=== PATIENT | male | born 1975 | race Caucasian/White ===

== ENCOUNTER → 2016-11-05 | Outpatient (REF) | payer MEDICARE ==
[~2016-11-05] MED LIST: /HYDR10T PO; AFRI0.052; BACT2CRE TOP; BACT2OIN EX; BECLOMETHASONE TOP; BENA25CA PO; BENA25TA4 PO; BETA0.1O TOP; BETAMETHASONE VALERATE TOP; DOXY75CA3 PO; FURO40TA2 PO; FURO80TA2 PO; GABA300C2 PO; HUMA75IN SC; HUMA75IN2 SC; MUPI2OI TOP; NASA55AE; OMEP20CA3 PO; PERC7.5T12 PO; REGL10TA6 PO; SPIR50TA2 PO; TESS100C PO; TETR250C3 PO; TYLE325T5 PO; ZOFR8TAB PO; [UNRECOGNIZED DRUG - CODE] IPL; [UNRECOGNIZED DRUG - CODE] PO
[2016-11-05 16:26] LABS: ANION GAP 12 MEQ/L (8-16); BLOOD UREA NITROGEN 22 MG/DL (7-18); CALCIUM LEVEL 9.5 MG/DL (8.5-10.1); CARBON DIOXIDE LEVEL 26 MEQ/L (21-32); CHLORIDE LEVEL 102 MEQ/L (98-107); CREATININE FOR GFR 1.21 MG/DL (0.70-1.30); GLOMERULAR FILTRATION RATE > 60.0 (>60); GLUCOSE, FASTING 159 MG/DL (70-105); POTASSIUM SERUM 4.8 MEQ/L (3.5-5.1); SODIUM LEVEL 140 MEQ/L (136-145)
== END ==
LOC: M SFHCPLAZ 12:00
PROVIDERS: ATTEND Family Medicine
DX: R79.89 Other specified abnormal findings of blood chemistry (principal)

== ENCOUNTER → 2016-12-31 | Outpatient (REF) | payer MEDICARE ==
[2016-12-31 17:11] LABS: CALCIUM LEVEL 8.9 MG/DL (8.5-10.1); CREATININE FOR GFR 1.82 MG/DL (0.70-1.30); GLOMERULAR FILTRATION RATE 44.1 (>60); POTASSIUM SERUM 4.2 MEQ/L (3.5-5.1)
== END ==
LOC: M SFHCPLAZ 13:38
PROVIDERS: ATTEND Family Medicine
DX: R21 Rash and other nonspecific skin eruption (principal); R79.89 Other specified abnormal findings of blood chemistry

== ENCOUNTER → 2017-03-19 | Outpatient (REF) | payer MEDICARE ==
[2017-03-19 15:56] LABS: CALCIUM LEVEL 9.4 MG/DL (8.5-10.1); CREATININE FOR GFR 1.45 MG/DL (0.70-1.30); GLOMERULAR FILTRATION RATE 57.1 (>60); POTASSIUM SERUM 4.1 MEQ/L (3.5-5.1)
== END ==
LOC: M SFHCPLAZ 13:02
PROVIDERS: ATTEND Family Medicine
DX: E11.40 Type 2 diabetes mellitus with diabetic neuropathy, unspecified (principal); N18.3 Chronic kidney disease, stage 3 (moderate)

== ENCOUNTER → 2017-04-17 | Outpatient (REF) | payer MEDICARE, MEDICAID ==
[2017-04-17 12:39] LABS: ANION GAP 9 MEQ/L (8-16); BLOOD UREA NITROGEN 24 MG/DL (7-18); CALCIUM LEVEL 8.8 MG/DL (8.5-10.1); CARBON DIOXIDE LEVEL 28 MEQ/L (21-32); CHLORIDE LEVEL 99 MEQ/L (98-107); CREATININE FOR GFR 1.27 MG/DL (0.70-1.30); FREE T4 1.16 NG/DL (0.76-1.46); GLOMERULAR FILTRATION RATE > 60.0 (>60); GLUCOSE, FASTING 206 MG/DL (70-105); POTASSIUM SERUM 4.4 MEQ/L (3.5-5.1); SODIUM LEVEL 136 MEQ/L (136-145)
== END ==
LOC: M SFHCPLAZ 09:32
PROVIDERS: ATTEND Family Medicine
DX: R53.82 Chronic fatigue, unspecified (principal); R60.9 Edema, unspecified

== ENCOUNTER → 2017-05-27 | Outpatient (REF) | payer MEDICARE ==
[2017-05-27 19:09] LABS: MEAN CORPUSCULAR HEMOGLOBIN 25.2 pg (27.0-33.0); MEAN CORPUSCULAR HGB CONC 33.2 g/dl (32.0-36.5); MEAN CORPUSCULAR VOLUME 76.1 fl (80.0-96.0); RED CELL DISTRIBUTION WIDTH 13.6 % (11.5-14.5)
== END ==
LOC: M SFHCPLAZ 14:59
PROVIDERS: ATTEND Family Medicine
DX: F39 Unspecified mood [affective] disorder (principal); E29.1 Testicular hypofunction; N18.3 Chronic kidney disease, stage 3 (moderate); E11.42 Type 2 diabetes mellitus with diabetic polyneuropathy; Z79.4 Long term (current) use of insulin; Z79.899 Other long term (current) drug therapy

== ENCOUNTER → 2017-08-08 | Outpatient (REF) | payer MEDICARE ==
[2017-08-08 16:07] LABS: ANION GAP 9 MEQ/L (8-16); BLOOD UREA NITROGEN 17 MG/DL (7-18); CALCIUM LEVEL 9.7 MG/DL (8.5-10.1); CARBON DIOXIDE LEVEL 27 MEQ/L (21-32); CHLORIDE LEVEL 104 MEQ/L (98-107); CREATININE FOR GFR 1.03 MG/DL (0.70-1.30); GLOMERULAR FILTRATION RATE > 60.0 (>60); GLUCOSE, FASTING 122 MG/DL (70-105); POTASSIUM SERUM 4.4 MEQ/L (3.5-5.1); SODIUM LEVEL 140 MEQ/L (136-145)
== END ==
LOC: M SFHCPLAZ 12:45
PROVIDERS: ATTEND Family Medicine
DX: E29.1 Testicular hypofunction (principal); E11.9 Type 2 diabetes mellitus without complications

== ENCOUNTER → 2017-12-16 | Outpatient (REF) | payer MEDICARE ==
[2017-12-16 16:16] LABS: ANION GAP 10 MEQ/L (8-16); BLOOD UREA NITROGEN 18 MG/DL (7-18); CALCIUM LEVEL 9.1 MG/DL (8.5-10.1); CARBON DIOXIDE LEVEL 26 MEQ/L (21-32); CHLORIDE LEVEL 98 MEQ/L (98-107); CREATININE FOR GFR 1.47 MG/DL (0.70-1.30); GLOMERULAR FILTRATION RATE 56.2 (>60); GLUCOSE, FASTING 183 MG/DL (70-100); POTASSIUM SERUM 3.9 MEQ/L (3.5-5.1); SODIUM LEVEL 134 MEQ/L (136-145)
[2017-12-16 16:21] LABS: TESTOSTERONE 286 NG/DL (241-827)
[2017-12-16 21:42] LABS: ESTIMATED AVERAGE GLUCOSE 189 MG/DL (60-110); HEMOGLOBIN A1c 8.2 %
== END ==
LOC: M SFHCPLAZ 14:33
DX: E11.9 Type 2 diabetes mellitus without complications (principal); E29.1 Testicular hypofunction
CPT/HCPCS: 84403

== ENCOUNTER 2018-03-30 13:47 | Inpatient (IN) | payer MEDICARE ==
[2018-03-30 16:51] LABS: HEMATOCRIT 35.6 % (42.0-52.0); HEMOGLOBIN 10.7 g/dl (13.5-17.5); MEAN CORPUSCULAR HEMOGLOBIN 20.3 pg (27.0-33.0); MEAN CORPUSCULAR HGB CONC 30.1 g/dl (32.0-36.5); MEAN CORPUSCULAR VOLUME 67.6 fl (80.0-96.0); PLATELET COUNT, AUTOMATED 354 10^3/uL (150-450); RED BLOOD COUNT 5.27 10^6/uL (4.30-6.10); RED CELL DISTRIBUTION WIDTH 18.3 % (11.5-14.5); WHITE BLOOD COUNT 11.3 10^3/uL (4.0-10.0)
[2018-03-30 17:01] LABS: ALBUMIN 3.4 GM/DL (3.2-5.2); ALBUMIN/GLOBULIN RATIO 0.81 (1.00-1.93); ALKALINE PHOSPHATASE 81 U/L (45-117); ALT/SGPT 19 U/L (12-78); ANION GAP 6 MEQ/L (8-16); AST/SGOT 7 U/L (7-37); BILIRUBIN,TOTAL 0.5 MG/DL (0.2-1.0); BLOOD UREA NITROGEN 17 MG/DL (7-18); CARBON DIOXIDE LEVEL 28 MEQ/L (21-32); CHLORIDE LEVEL 102 MEQ/L (98-107); CREATININE FOR GFR 1.03 MG/DL (0.70-1.30); GLOMERULAR FILTRATION RATE > 60.0 (>60); GLUCOSE, FASTING 199 MG/DL (70-100); SODIUM LEVEL 136 MEQ/L (136-145); TOTAL PROTEIN 7.6 GM/DL (6.4-8.2)
[2018-03-30] MEDS: methylPREDNISolone 1,000 MG, VIAL MATE ADAPTER 1 EACH in D5W 250 ML IV (18:45)
[2018-03-30] MEDS ORDERED: diazePAM 5 MG TAB As Ordered (19:48)
[2018-03-30] MEDS: diazePAM 5 MG TAB PO ×2 (19:58→21:13)
[2018-03-30 20:03] LABS: APPEARANCE, URINE HAZY (CLEAR); BACTERIA, URINE AUTO 2+ (NEGATIVE); BILIRUBIN, URINE AUTO NEGATIVE (NEGATIVE); BLOOD, URINE BLOOD NEGATIVE (NEGATIVE); COLOR, URINE YELLOW (YELLOW); GLUCOSE, URINE (UA) AUTO 3+ mg/dL (NEGATIVE); KETONE, URINE AUTO NEGATIVE (NEGATIVE); LEUKOCYTE ESTERASE, URINE AUTO 1+ (NEGATIVE); MUCUS, URINE SMALL (NEGATIVE); NITRITE, URINE AUTO POSITIVE (NEGATIVE); PROTEIN, URINE AUTO NEGATIVE (NEGATIVE); RBC, URINE AUTO 3 /HPF (0-3); SPECIFIC GRAVITY URINE AUTO 1.024 (1.002-1.035); SQUAMOUS EPITHELIAL CELL UR AU 1 /HPF (0-6); UROBILINOGEN, URINE AUTO 0.2 mg/dL (0.0-2.0); WBC, URINE AUTO 72 /HPF (0-3)
[2018-03-30] MEDS ORDERED: PERCOCET 5MG/325MG TAB PO (21:15)
[2018-03-30] MEDS ORDERED: ACETAMINOPHEN TAB 650MG DOSE (2X325MG) PO (21:15)
[2018-03-30] MEDS ORDERED: PILL CRUSHER/CUTTER 1 EACH XX (21:15)
[2018-03-30] MEDS ORDERED: ONDANSETRON 4MG/2ML VIAL (J2405) IV (21:15)
[2018-03-30] MEDS ORDERED: PROHANCE 279.3MG/ML 15ML VIAL (A9576) As Ordered (21:53)
[2018-03-30] MEDS ORDERED: HumuLIN R (REGULAR) INSULIN (NovoLIN R) **100U/ML** PER UNIT SC (23:45)
[2018-03-30 23:57] LABS: BEDSIDE GLUCOSE 425 MG/DL (70-105)
[2018-03-31] MEDS ORDERED: HUMULIN R U-500 KWIKPEN 500UNITS/ML 3ML SYRINGE (J1815 PER 5UNITS) SC (00:15)
[2018-03-31] MEDS ORDERED: GLUCOSE 4 GM CHEW TABLET PO (00:30)
[2018-03-31] MEDS ORDERED: GLUCAGON FOR INJ 1 MG VIAL (J1610) SC (00:30)
[2018-03-31] MEDS ORDERED: DEXTROSE 50% 50 ML SYRINGE IV (00:30)
[2018-03-31] MEDS: GABAPENTIN 300 MG CAP PO ×2 (00:39→21:06)
[2018-03-31] MEDS: hydrOXYzine 50 MG TAB PO ×2 (00:39→21:06)
[2018-03-31] MEDS: clonazePAM 1 MG TAB PO ×3 (00:40→21:07)
[2018-03-31] MEDS: DULoxetine 30 MG CAP (CYMBALTA) PO ×3 (00:40→21:05)
[2018-03-31] MEDS: LISINOPRIL *2.5 MG* TAB PO ×2 (00:40→21:08)
[2018-03-31] MEDS: LEVEMIR (INSULIN DETEMIR) 1 UNITS/0.01ML SC ×2 (00:41→08:28)
[2018-03-31 07:01] LABS: BASO % 0.1 % (0.0-1.0); HEMATOCRIT 33.8 % (42.0-52.0); HEMOGLOBIN 10.3 g/dl (13.5-17.5); IMMATURE GRANULOCYTE % 0.4 % (0-3.0); LYMPH # 0.6 10^3/uL (1.5-4.5); LYMPH % 4.1 % (24.0-44.0); MEAN CORPUSCULAR HEMOGLOBIN 20.3 pg (27.0-33.0); MEAN CORPUSCULAR HGB CONC 30.5 g/dl (32.0-36.5); MEAN CORPUSCULAR VOLUME 66.5 fl (80.0-96.0); MONO # 0.1 10^3/uL (0.0-0.8); MONO % 0.4 % (0.0-5.0); NEUTROPHILS # 14.8 10^3/uL (1.8-7.7); PLATELET COUNT, AUTOMATED 353 10^3/uL (150-450); RED BLOOD COUNT 5.08 10^6/uL (4.30-6.10); RED CELL DISTRIBUTION WIDTH 17.5 % (11.5-14.5); WHITE BLOOD COUNT 15.6 10^3/uL (4.0-10.0)
[2018-03-31 07:15] LABS: ANION GAP 13 MEQ/L (8-16); BLOOD UREA NITROGEN 21 MG/DL (7-18); CALCIUM LEVEL 9.2 MG/DL (8.5-10.1); CARBON DIOXIDE LEVEL 19 MEQ/L (21-32); CHLORIDE LEVEL 99 MEQ/L (98-107); CREATININE FOR GFR 1.46 MG/DL (0.70-1.30); GLOMERULAR FILTRATION RATE 56.4 (>60); POTASSIUM SERUM 4.8 MEQ/L (3.5-5.1); SODIUM LEVEL 131 MEQ/L (136-145)
[2018-03-31 07:21] LABS: GLUCOSE, FASTING 609 MG/DL (70-100)
[2018-03-31] MEDS: HumaLOG INSULIN (NovoLOG) PER UNIT SC ×7 (07:30→21:07)
[2018-03-31] MEDS: PANTOPRAZOLE 40MG TAB (PROTONIX) PO (08:27)
[2018-03-31] MEDS: methylPREDNISolone INJ 125 MG/2 ML VIAL (J2930) IV (08:27)
[2018-03-31] MEDS: ENOXAPARIN 40 MG/0.4 ML SYRINGE (J1650) SC (08:28)
[2018-03-31] MEDS: cefTRIAXone SOD 1 GM in D5W MINI-BAG PLUS 50 ML IV (08:28)
[2018-03-31] MEDS: FLUTICASONE PROP 0.05% NASAL SPRAY 16 GM (FLONASE) (08:29)
[2018-03-31] MEDS ORDERED: DULoxetine 30 MG CAP (CYMBALTA) PO (09:00)
[2018-03-31] MEDS ORDERED: cefTRIAXone SOD 1 GM VIAL (J0696) IM (09:00)
[2018-03-31] MEDS ORDERED: cefTRIAXone SOD 1 GM VIAL (J0696) IV (09:00)
[2018-03-31] MEDS ORDERED: clonazePAM 1 MG TAB PO (09:00)
[2018-03-31] MEDS: HUMULIN R U-500 KWIKPEN 500UNITS/ML 3ML SYRINGE (J1815 PER 5UNITS) SC ×2 (09:44→21:09)
[2018-03-31 11:13] LABS: BEDSIDE GLUCOSE 509 MG/DL (70-105)
[2018-03-31 15:09] LABS: ANION GAP 10 MEQ/L (8-16); BLOOD UREA NITROGEN 20 MG/DL (7-18); CALCIUM LEVEL 9.7 MG/DL (8.5-10.1); CARBON DIOXIDE LEVEL 23 MEQ/L (21-32); CHLORIDE LEVEL 101 MEQ/L (98-107); CREATININE FOR GFR 1.31 MG/DL (0.70-1.30); GLOMERULAR FILTRATION RATE > 60.0 (>60); POTASSIUM SERUM 4.6 MEQ/L (3.5-5.1); SODIUM LEVEL 134 MEQ/L (136-145)
[2018-03-31 15:17] LABS: GLUCOSE, FASTING 495 MG/DL (70-100)
[2018-03-31 16:51] LABS: BEDSIDE GLUCOSE 512 MG/DL (70-105)
[2018-03-31 17:51] LABS: BEDSIDE GLUCOSE CONFIRMATION 527 MG/DL (LESS THAN 200)
[2018-03-31 20:11] LABS: BEDSIDE GLUCOSE 540 MG/DL (70-105)
[2018-03-31] MEDS ORDERED: NICOTINE POLACRILEX 2 MG GUM PO (20:30)
[2018-03-31] MEDS ORDERED: LISINOPRIL *2.5 MG* TAB PO (21:00)
[2018-03-31] MEDS ORDERED: hydrOXYzine 50 MG TAB PO (21:00)
[2018-03-31] MEDS ORDERED: GABAPENTIN 300 MG CAP PO (21:00)
[2018-03-31 23:52] LABS: BEDSIDE GLUCOSE 479 MG/DL (70-105)
[2018-04-01 05:35] LABS: BEDSIDE GLUCOSE 357 MG/DL (70-105)
[2018-04-01 07:05] LABS: BASO % 0.1 % (0.0-1.0); HEMOGLOBIN 9.8 g/dl (13.5-17.5); IMMATURE GRANULOCYTE % 0.5 % (0-3.0); MEAN CORPUSCULAR HEMOGLOBIN 20.4 pg (27.0-33.0); MEAN CORPUSCULAR HGB CONC 30.6 g/dl (32.0-36.5); MEAN CORPUSCULAR VOLUME 66.7 fl (80.0-96.0); MONO # 1.1 10^3/uL (0.0-0.8); MONO % 5.7 % (0.0-5.0); NEUTROPHILS # 16.7 10^3/uL (1.8-7.7); NEUTROPHILS % 83.7 % (36.0-66.0); PLATELET COUNT, AUTOMATED 320 10^3/uL (150-450); RED CELL DISTRIBUTION WIDTH 17.5 % (11.5-14.5); WHITE BLOOD COUNT 19.9 10^3/uL (4.0-10.0)
[2018-04-01 07:38] LABS: ANION GAP 10 MEQ/L (8-16); BLOOD UREA NITROGEN 22 MG/DL (7-18); CALCIUM LEVEL 9.2 MG/DL (8.5-10.1); CARBON DIOXIDE LEVEL 25 MEQ/L (21-32); CHLORIDE LEVEL 103 MEQ/L (98-107); CREATININE FOR GFR 1.09 MG/DL (0.70-1.30); GLOMERULAR FILTRATION RATE > 60.0 (>60); GLUCOSE, FASTING 329 MG/DL (70-100); MAGNESIUM LEVEL 2.4 MG/DL (1.8-2.4); POTASSIUM SERUM 4.5 MEQ/L (3.5-5.1); SODIUM LEVEL 138 MEQ/L (136-145)
[2018-04-01] MEDS: cefTRIAXone SOD 1 GM in D5W MINI-BAG PLUS 50 ML IV (08:52)
[2018-04-01] MEDS: DULoxetine 30 MG CAP (CYMBALTA) PO ×2 (08:53→21:39)
[2018-04-01] MEDS: clonazePAM 1 MG TAB PO ×2 (08:53→21:39)
[2018-04-01] MEDS: HUMULIN R U-500 KWIKPEN 500UNITS/ML 3ML SYRINGE (J1815 PER 5UNITS) SC ×2 (08:53→21:40)
[2018-04-01] MEDS: PANTOPRAZOLE 40MG TAB (PROTONIX) PO (08:53)
[2018-04-01] MEDS: FLUTICASONE PROP 0.05% NASAL SPRAY 16 GM (FLONASE) (08:54)
[2018-04-01] MEDS: HumaLOG INSULIN (NovoLOG) PER UNIT SC ×4 (08:55→21:40)
[2018-04-01] MEDS: ENOXAPARIN 40 MG/0.4 ML SYRINGE (J1650) SC (09:00)
[2018-04-01] MEDS: methylPREDNISolone 1,000 MG, VIAL MATE ADAPTER 1 EACH in D5W 250 ML IV (09:50)
[2018-04-01 11:35] LABS: BEDSIDE GLUCOSE 328 MG/DL (70-105)
[2018-04-01] MEDS: DIAPER RELIEF PASTE (DESITIN) 60GM TOP (15:42)
[2018-04-01 17:03] LABS: BEDSIDE GLUCOSE 548 MG/DL (70-105)
[2018-04-01 18:11] LABS: BEDSIDE GLUCOSE CONFIRMATION 540 MG/DL (LESS THAN 200)
[2018-04-01 20:03] LABS: BEDSIDE GLUCOSE 574 MG/DL (70-105)
[2018-04-01 20:59] LABS: BEDSIDE GLUCOSE CONFIRMATION 561 MG/DL (LESS THAN 200)
[2018-04-01] MEDS: LISINOPRIL *2.5 MG* TAB PO (21:38)
[2018-04-01] MEDS: GABAPENTIN 300 MG CAP PO (21:39)
[2018-04-01] MEDS ORDERED: GABAPENTIN 300 MG CAP As Ordered (21:41)
[2018-04-01] MEDS: hydrOXYzine 50 MG TAB PO (21:44)
[2018-04-02 00:14] LABS: BEDSIDE GLUCOSE 400 MG/DL (70-105)
[2018-04-02 06:15] LABS: BASO % 0.1 % (0.0-1.0); HEMOGLOBIN 9.6 g/dl (13.5-17.5); IMMATURE GRANULOCYTE % 0.4 % (0-3.0); LYMPH # 1.6 10^3/uL (1.5-4.5); LYMPH % 9.4 % (24.0-44.0); MEAN CORPUSCULAR HEMOGLOBIN 20.3 pg (27.0-33.0); MEAN CORPUSCULAR VOLUME 65.5 fl (80.0-96.0); MONO # 0.6 10^3/uL (0.0-0.8); MONO % 3.4 % (0.0-5.0); NEUTROPHILS # 14.7 10^3/uL (1.8-7.7); NEUTROPHILS % 86.7 % (36.0-66.0); PLATELET COUNT, AUTOMATED 365 10^3/uL (150-450); RED BLOOD COUNT 4.73 10^6/uL (4.30-6.10); RED CELL DISTRIBUTION WIDTH 17.6 % (11.5-14.5)
[2018-04-02 06:40] LABS: ANION GAP 10 MEQ/L (8-16); BLOOD UREA NITROGEN 26 MG/DL (7-18); CALCIUM LEVEL 9.2 MG/DL (8.5-10.1); CARBON DIOXIDE LEVEL 26 MEQ/L (21-32); CHLORIDE LEVEL 102 MEQ/L (98-107); CREATININE FOR GFR 1.09 MG/DL (0.70-1.30); GLOMERULAR FILTRATION RATE > 60.0 (>60); GLUCOSE, FASTING 329 MG/DL (70-100); MAGNESIUM LEVEL 2.2 MG/DL (1.8-2.4); POTASSIUM SERUM 4.3 MEQ/L (3.5-5.1); SODIUM LEVEL 138 MEQ/L (136-145)
[2018-04-02] MEDS: DIAPER RELIEF PASTE (DESITIN) 60GM TOP (09:00)
[2018-04-02] MEDS: FLUTICASONE PROP 0.05% NASAL SPRAY 16 GM (FLONASE) (09:45)
[2018-04-02] MEDS: DULoxetine 30 MG CAP (CYMBALTA) PO ×2 (09:46→20:16)
[2018-04-02] MEDS: HumaLOG INSULIN (NovoLOG) PER UNIT SC ×4 (09:46→20:17)
[2018-04-02] MEDS: clonazePAM 1 MG TAB PO ×2 (09:46→20:16)
[2018-04-02] MEDS: PANTOPRAZOLE 40MG TAB (PROTONIX) PO (09:46)
[2018-04-02] MEDS: ENOXAPARIN 40 MG/0.4 ML SYRINGE (J1650) SC (09:47)
[2018-04-02] MEDS: methylPREDNISolone 1,000 MG, VIAL MATE ADAPTER 1 EACH in D5W 250 ML IV (09:47)
[2018-04-02] MEDS: HUMULIN R U-500 KWIKPEN 500UNITS/ML 3ML SYRINGE (J1815 PER 5UNITS) SC ×2 (09:47→20:17)
[2018-04-02] MEDS: cefTRIAXone SOD 1 GM in D5W MINI-BAG PLUS 50 ML IV (09:48)
[2018-04-02 11:43] LABS: BEDSIDE GLUCOSE 345 MG/DL (70-105)
[2018-04-02 16:46] LABS: BEDSIDE GLUCOSE 370 MG/DL (70-105)
[2018-04-02 20:09] LABS: BEDSIDE GLUCOSE 429 MG/DL (70-105)
[2018-04-02] MEDS: LISINOPRIL *2.5 MG* TAB PO (20:16)
[2018-04-02] MEDS: GABAPENTIN 300 MG CAP PO (20:16)
[2018-04-02] MEDS: hydrOXYzine 50 MG TAB PO (21:25)
[2018-04-03 02:41] LABS: BEDSIDE GLUCOSE 344 MG/DL (70-105)
[2018-04-03 06:24] LABS: HEMATOCRIT 30.7 % (42.0-52.0); HEMOGLOBIN 9.7 g/dl (13.5-17.5); IMMATURE GRANULOCYTE % 0.8 % (0-3.0); LYMPH % 13.8 % (24.0-44.0); MEAN CORPUSCULAR HEMOGLOBIN 20.5 pg (27.0-33.0); MEAN CORPUSCULAR HGB CONC 31.6 g/dl (32.0-36.5); MEAN CORPUSCULAR VOLUME 64.8 fl (80.0-96.0); MONO # 0.8 10^3/uL (0.0-0.8); MONO % 5.3 % (0.0-5.0); NEUTROPHILS # 11.5 10^3/uL (1.8-7.7); NEUTROPHILS % 80.1 % (36.0-66.0); PLATELET COUNT, AUTOMATED 374 10^3/uL (150-450); RED BLOOD COUNT 4.74 10^6/uL (4.30-6.10); RED CELL DISTRIBUTION WIDTH 17.5 % (11.5-14.5); WHITE BLOOD COUNT 14.3 10^3/uL (4.0-10.0)
[2018-04-03 06:44] LABS: ANION GAP 6 MEQ/L (8-16); BLOOD UREA NITROGEN 31 MG/DL (7-18); CARBON DIOXIDE LEVEL 27 MEQ/L (21-32); CHLORIDE LEVEL 103 MEQ/L (98-107); CREATININE FOR GFR 1.09 MG/DL (0.70-1.30); GLOMERULAR FILTRATION RATE > 60.0 (>60); GLUCOSE, FASTING 302 MG/DL (70-100); MAGNESIUM LEVEL 2.1 MG/DL (1.8-2.4); SODIUM LEVEL 136 MEQ/L (136-145)
[2018-04-03] MEDS: PANTOPRAZOLE 40MG TAB (PROTONIX) PO (09:09)
[2018-04-03] MEDS: clonazePAM 1 MG TAB PO ×2 (09:10→21:34)
[2018-04-03] MEDS: FLUTICASONE PROP 0.05% NASAL SPRAY 16 GM (FLONASE) (09:10)
[2018-04-03] MEDS: HumaLOG INSULIN (NovoLOG) PER UNIT SC ×4 (09:10→20:38)
[2018-04-03] MEDS: DULoxetine 30 MG CAP (CYMBALTA) PO ×2 (09:10→21:34)
[2018-04-03] MEDS: ENOXAPARIN 40 MG/0.4 ML SYRINGE (J1650) SC (09:10)
[2018-04-03] MEDS: DIAPER RELIEF PASTE (DESITIN) 60GM TOP (09:11)
[2018-04-03] MEDS: HUMULIN R U-500 KWIKPEN 500UNITS/ML 3ML SYRINGE (J1815 PER 5UNITS) SC ×2 (09:11→21:37)
[2018-04-03 11:56] LABS: BEDSIDE GLUCOSE 284 MG/DL (70-105)
[2018-04-03 16:47] LABS: BEDSIDE GLUCOSE 245 MG/DL (70-105)
[2018-04-03 20:38] LABS: BEDSIDE GLUCOSE 215 MG/DL (70-105)
[2018-04-03] MEDS: hydrOXYzine 50 MG TAB PO (21:34)
[2018-04-03] MEDS: GABAPENTIN 300 MG CAP PO (21:34)
[2018-04-03] MEDS: LISINOPRIL *2.5 MG* TAB PO (21:36)
[2018-04-04 05:52] LABS: BEDSIDE GLUCOSE 143 MG/DL (70-105)
[2018-04-04 06:39] LABS: HEMATOCRIT 36.2 % (42.0-52.0); MEAN CORPUSCULAR HEMOGLOBIN 20.2 pg (27.0-33.0); MEAN CORPUSCULAR HGB CONC 30.4 g/dl (32.0-36.5); MEAN CORPUSCULAR VOLUME 66.4 fl (80.0-96.0); PLATELET COUNT, AUTOMATED 403 10^3/uL (150-450); RED BLOOD COUNT 5.45 10^6/uL (4.30-6.10); RED CELL DISTRIBUTION WIDTH 17.9 % (11.5-14.5)
[2018-04-04 06:43] LABS: ADD MANUAL DIFFER YES; DIFF SLIDE NUMBER 22; POSITIVE DIFF POS FLAG; POSITIVE MORPH POS FLAG; WHITE BLOOD COUNT 12.1 10^3/uL (4.0-10.0)
[2018-04-04 07:10] LABS: ANION GAP 9 MEQ/L (8-16); BLOOD UREA NITROGEN 33 MG/DL (7-18); CALCIUM LEVEL 8.4 MG/DL (8.5-10.1); CARBON DIOXIDE LEVEL 30 MEQ/L (21-32); CHLORIDE LEVEL 103 MEQ/L (98-107); CREATININE FOR GFR 1.13 MG/DL (0.70-1.30); GLOMERULAR FILTRATION RATE > 60.0 (>60); GLUCOSE, FASTING 131 MG/DL (70-100); MAGNESIUM LEVEL 2.1 MG/DL (1.8-2.4); POTASSIUM SERUM 3.9 MEQ/L (3.5-5.1); SODIUM LEVEL 142 MEQ/L (136-145)
[2018-04-04 07:42] LABS: ATYPICAL LYMPH 1 % (0-5); BASOPHILS 1 % (0-4); EOSINOPHILS 2 % (0-5); LYMPHOCYTES 39 % (16-52); METAMYELOCYTES 1 % (0-0); MONOCYTES 2 % (0-8); NEUTROPHILS 54 % (35-75)
[2018-04-04 07:43] LABS: ANISOCYTOSIS 1+; HYPOCHROMASIA 1+; MICROCYTOSIS 1+; PLATELET ESTIMATE NORMAL (NORMAL); POIKILOCYTOSIS 1+
[2018-04-04] MEDS: PANTOPRAZOLE 40MG TAB (PROTONIX) PO (08:10)
[2018-04-04] MEDS: clonazePAM 1 MG TAB PO (08:10)
[2018-04-04] MEDS: HumaLOG INSULIN (NovoLOG) PER UNIT SC ×2 (08:10→12:00)
[2018-04-04] MEDS: DULoxetine 30 MG CAP (CYMBALTA) PO (08:10)
[2018-04-04] MEDS: DIAPER RELIEF PASTE (DESITIN) 60GM TOP (08:11)
[2018-04-04] MEDS: FLUTICASONE PROP 0.05% NASAL SPRAY 16 GM (FLONASE) (08:11)
[2018-04-04] MEDS: ENOXAPARIN 40 MG/0.4 ML SYRINGE (J1650) SC (08:11)
[2018-04-04] MEDS: HUMULIN R U-500 KWIKPEN 500UNITS/ML 3ML SYRINGE (J1815 PER 5UNITS) SC (08:12)
[2018-04-04 11:25] LABS: BEDSIDE GLUCOSE 123 MG/DL (70-105)
== END 2018-04-04 14:51 | DRG 59 ==
LOC: M MS4PR 03-31 14:14 → M ED 13:47 → M MSPAV 04-01 17:19 → M ED INP 21:02
DX: G35 Multiple sclerosis (principal); N39.0 Urinary tract infection, site not specified; Z68.42 Body mass index [BMI] 45.0-49.9, adult; L97.429 Non-pressure chronic ulcer of left heel and midfoot with unspecified severity; R45.851 Suicidal ideations; E11.621 Type 2 diabetes mellitus with foot ulcer; E11.40 Type 2 diabetes mellitus with diabetic neuropathy, unspecified; B96.20 Unspecified Escherichia coli [E. coli] as the cause of diseases classified elsewhere; T38.0X5A Adverse effect of glucocorticoids and synthetic analogues, initial encounter; E66.01 Morbid (severe) obesity due to excess calories; R73.9 Hyperglycemia, unspecified; F17.290 Nicotine dependence, other tobacco product, uncomplicated; F32.9 Major depressive disorder, single episode, unspecified; F41.9 Anxiety disorder, unspecified; K21.9 Gastro-esophageal reflux disease without esophagitis; G47.33 Obstructive sleep apnea (adult) (pediatric); E78.5 Hyperlipidemia, unspecified; Z79.4 Long term (current) use of insulin; Z88.8 Allergy status to other drugs, medicaments and biological substances; Z91.19 Patient's noncompliance with other medical treatment and regimen; Z79.899 Other long term (current) drug therapy

== ENCOUNTER 2018-04-04 11:17 | Inpatient (IN) | payer OTHER, MEDICARE ==
[2018-04-04] MEDS ORDERED: DEXTROSE 50% 50 ML SYRINGE IV (17:15)
[2018-04-04] MEDS ORDERED: GLUCOSE 4 GM CHEW TABLET PO (17:15)
[2018-04-04] MEDS ORDERED: GLUCAGON FOR INJ 1 MG VIAL (J1610) SC (17:15)
[2018-04-04] MEDS: HumaLOG INSULIN (NovoLOG) PER UNIT SC ×2 (17:30→21:00)
[2018-04-04 17:35] LABS: BEDSIDE GLUCOSE 93 MG/DL (70-105)
[2018-04-04] MEDS ORDERED: ACETAMINOPHEN TAB 650MG DOSE (2X325MG) PO (20:15)
[2018-04-04 21:14] LABS: BEDSIDE GLUCOSE 129 MG/DL (70-105)
[2018-04-04] MEDS: DULoxetine 30 MG CAP (CYMBALTA) PO (23:42)
[2018-04-04] MEDS: hydrOXYzine 50 MG TAB PO (23:42)
[2018-04-04] MEDS: GABAPENTIN 300 MG CAP PO (23:42)
[2018-04-04] MEDS: clonazePAM 1 MG TAB PO (23:42)
[2018-04-04] MEDS: LISINOPRIL *2.5 MG* TAB PO (23:43)
[2018-04-04] MEDS: ENOXAPARIN 40 MG/0.4 ML SYRINGE (J1650) SC (23:44)
[2018-04-05] MEDS: HumaLOG INSULIN (NovoLOG) PER UNIT SC ×4 (06:21→21:00)
[2018-04-05 06:25] LABS: BEDSIDE GLUCOSE 236 MG/DL (70-105)
[2018-04-05] MEDS: HUMULIN R U-500 KWIKPEN 500UNITS/ML 3ML SYRINGE (J1815 PER 5UNITS) SC ×2 (07:48→17:05)
[2018-04-05] MEDS: clonazePAM 1 MG TAB PO ×2 (09:02→21:24)
[2018-04-05] MEDS: DULoxetine 30 MG CAP (CYMBALTA) PO ×2 (09:02→21:23)
[2018-04-05] MEDS: PANTOPRAZOLE 40MG TAB (PROTONIX) PO (09:02)
[2018-04-05] MEDS: NICOTINE POLACRILEX 2 MG GUM PO ×2 (09:09→22:28)
[2018-04-05 11:54] LABS: BEDSIDE GLUCOSE 213 MG/DL (70-105)
[2018-04-05] MEDS: DIAPER RELIEF PASTE (DESITIN) 60GM TOP (12:01)
[2018-04-05] MEDS: FLUTICASONE PROP 0.05% NASAL SPRAY 16 GM (FLONASE) (13:13)
[2018-04-05] MEDS: PERCOCET 5MG/325MG TAB PO ×3 (13:55→22:27)
[2018-04-05 16:32] LABS: BEDSIDE GLUCOSE 261 MG/DL (70-105)
[2018-04-05 21:14] LABS: BEDSIDE GLUCOSE 138 MG/DL (70-105)
[2018-04-05] MEDS: hydrOXYzine 50 MG TAB PO (21:23)
[2018-04-05] MEDS: GABAPENTIN 300 MG CAP PO (21:25)
[2018-04-05] MEDS: LISINOPRIL *2.5 MG* TAB PO (21:29)
[2018-04-05] MEDS: ENOXAPARIN 40 MG/0.4 ML SYRINGE (J1650) SC (21:35)
[2018-04-06 06:04] LABS: BEDSIDE GLUCOSE 83 MG/DL (70-105)
[2018-04-06] MEDS: HumaLOG INSULIN (NovoLOG) PER UNIT SC ×2 (06:38→12:21)
[2018-04-06] MEDS: HUMULIN R U-500 KWIKPEN 500UNITS/ML 3ML SYRINGE (J1815 PER 5UNITS) SC (07:30)
[2018-04-06] MEDS: FLUTICASONE PROP 0.05% NASAL SPRAY 16 GM (FLONASE) (08:57)
[2018-04-06] MEDS: DIAPER RELIEF PASTE (DESITIN) 60GM TOP (08:57)
[2018-04-06] MEDS: DULoxetine 30 MG CAP (CYMBALTA) PO (08:58)
[2018-04-06] MEDS: PANTOPRAZOLE 40MG TAB (PROTONIX) PO (08:58)
[2018-04-06] MEDS: clonazePAM 1 MG TAB PO (08:58)
[2018-04-06] MEDS: NICOTINE POLACRILEX 2 MG GUM PO (08:58)
[2018-04-06 12:17] LABS: BEDSIDE GLUCOSE 178 MG/DL (70-105)
[2018-04-06] MEDS: PERCOCET 5MG/325MG TAB PO (14:02)
[2018-04-06] MEDS ORDERED: HUMULIN R U-500 KWIKPEN 500UNITS/ML 3ML SYRINGE (J1815 PER 5UNITS) SC (17:30)
== END 2018-04-06 16:00 | disposition home or self-care (01) | DRG 751 ==
LOC: M PSY 11:17
PROVIDERS: Psychiatry & Neurology Psychiatry
DX: F33.9 Major depressive disorder, recurrent, unspecified (principal); E11.621 Type 2 diabetes mellitus with foot ulcer; R45.851 Suicidal ideations; E66.01 Morbid (severe) obesity due to excess calories; L97.429 Non-pressure chronic ulcer of left heel and midfoot with unspecified severity; G35 Multiple sclerosis; Z68.42 Body mass index [BMI] 45.0-49.9, adult; K21.9 Gastro-esophageal reflux disease without esophagitis; G47.33 Obstructive sleep apnea (adult) (pediatric); E78.5 Hyperlipidemia, unspecified; F17.290 Nicotine dependence, other tobacco product, uncomplicated; Z73.89 Other problems related to life management difficulty; Z79.4 Long term (current) use of insulin; Z79.899 Other long term (current) drug therapy; Z88.8 Allergy status to other drugs, medicaments and biological substances

== ENCOUNTER → 2018-11-23 | Outpatient (REF) | payer OTHER, MEDICARE ==
[~2018-11-23] MED LIST changes: +ABIL1TAB11 PO; +BETA0.053 TOP; +CLON1TAB8 PO; +DRIS50003 PO; +DULO1CAP2 PO; +FLON1SPR; +GABA-843 PO; +HUMU500S2 SC; +HYDR50TA70 PO; +LISI2.5T5 PO; +NEXI40CA PO; +PANT40TA3 PO; +PERC5TAB12 PO; +VICT18IN SC; +ZOFR8TAB22 PO
[2018-11-23 19:42] LABS: ALT/SGPT 27 U/L (12-78); BILIRUBIN,TOTAL 0.5 MG/DL (0.2-1.0); BLOOD UREA NITROGEN 19 MG/DL (7-18); CARBON DIOXIDE LEVEL 26 MEQ/L (21-32); CHLORIDE LEVEL 101 MEQ/L (98-107); CHOLESTEROL LEVEL 258 MG/DL (<200); CHOLESTEROL RISK RATIO 6.142 (<5); CREATININE FOR GFR 1.18 MG/DL (0.70-1.30); FOLATE 19.7 NG/ML; GLOMERULAR FILTRATION RATE > 60.0 (>60); GLUCOSE, FASTING 223 MG/DL (70-100); HDL CHOLESTEROL 42 MG/DL (>40); LDL CHOLESTEROL 163 MG/DL (<100); NON-HDL-C 216 MG/DL; POTASSIUM SERUM 4.7 MEQ/L (3.5-5.1); SODIUM LEVEL 137 MEQ/L (136-145); TOTAL 25(OH) VITAMIN D 35.4 NG/ML (30.0-100.0); TOTAL PROTEIN 7.3 GM/DL (6.4-8.2); TRIGLYCERIDES LEVEL 264 MG/DL (<150)
[2018-11-23 19:43] LABS: BASO # 0.1 10^3/uL (0.0-0.2); BASO % 0.7 % (0.0-1.0); EOS # 0.2 10^3/uL (0.0-0.50); HEMATOCRIT 40.5 % (42.0-52.0); HEMOGLOBIN 12.4 g/dl (13.5-17.5); LYMPH # 1.5 10^3/uL (1.5-4.5); MEAN CORPUSCULAR HEMOGLOBIN 20.5 pg (27.0-33.0); MEAN CORPUSCULAR HGB CONC 30.6 g/dl (32.0-36.5); MEAN CORPUSCULAR VOLUME 66.8 fl (80.0-96.0); MONO # 0.9 10^3/uL (0.0-0.8); MONO % 8.9 % (0.0-5.0); NEUTROPHILS # 6.9 10^3/uL (1.8-7.7); NEUTROPHILS % 71.8 % (36.0-66.0); PLATELET COUNT, AUTOMATED 421 10^3/uL (150-450); RED BLOOD COUNT 6.06 10^6/uL (4.30-6.10); WHITE BLOOD COUNT 9.6 10^3/uL (4.0-10.0)
[2018-11-25 10:30] LABS: VITAMIN B12 LEVEL 781 PG/ML (232-1245)
== END ==
LOC: M LABNEURO 13:21
PROVIDERS: ATTEND Psychiatry & Neurology Neurology
DX: G35 Multiple sclerosis (principal)

== ENCOUNTER → 2019-05-24 | Outpatient (REF) | payer MEDICARE ==
[~2019-05-24] MED LIST changes: -DULO1CAP2 PO; +DULO1CAP5 PO; +LISI-1046 PO; -LISI2.5T5 PO; +MUPI1OIN2 TOP; -MUPI2OI TOP; +ONDA-227 PO; -ZOFR8TAB PO
[2019-05-24 15:15] LABS: BASO # 0.1 10^3/uL (0.0-0.2); BASO % 0.7 % (0.0-1.0); EOS # 0.2 10^3/uL (0.0-0.50); EOS % 2.1 % (0.0-3.0); HEMATOCRIT 44.8 % (42.0-52.0); HEMOGLOBIN 13.9 g/dl (13.5-17.5); LYMPH # 1.2 10^3/uL (1.5-4.5); LYMPH % 15.7 % (24.0-44.0); MEAN CORPUSCULAR HEMOGLOBIN 22.8 pg (27.0-33.0); MEAN CORPUSCULAR VOLUME 73.4 fl (80.0-96.0); MONO # 0.7 10^3/uL (0.0-0.8); MONO % 8.8 % (0.0-5.0); NEUTROPHILS # 5.4 10^3/uL (1.8-7.7); NEUTROPHILS % 72.2 % (36.0-66.0); PLATELET COUNT, AUTOMATED 317 10^3/uL (150-450); WHITE BLOOD COUNT 7.5 10^3/uL (4.0-10.0)
[2019-05-24 15:31] LABS: HEMOGLOBIN A1c 9.5 %
[2019-05-24 15:39] LABS: ALBUMIN 3.7 GM/DL (3.2-5.2); ALT/SGPT 39 U/L (12-78); BILIRUBIN,TOTAL 0.5 MG/DL (0.2-1.0); BLOOD UREA NITROGEN 18 MG/DL (7-18); CARBON DIOXIDE LEVEL 31 MEQ/L (21-32); CHLORIDE LEVEL 103 MEQ/L (98-107); CREATININE FOR GFR 1.02 MG/DL (0.70-1.30); GLOMERULAR FILTRATION RATE > 60.0 (>60); GLUCOSE, FASTING 205 MG/DL (70-100); SODIUM LEVEL 138 MEQ/L (136-145); TOTAL PROTEIN 7.4 GM/DL (6.4-8.2)
== END ==
LOC: M LABNEURO 13:14
PROVIDERS: ATTEND Psychiatry & Neurology Neurology
DX: G35 Multiple sclerosis (principal)

== ENCOUNTER → 2019-09-09 | Outpatient (REF) | payer MEDICARE ==
[2019-09-09 17:28] LABS: HEMOGLOBIN A1c 9.3 %
[2019-09-09 17:42] LABS: ALBUMIN 3.8 GM/DL (3.2-5.2); ALT/SGPT 38 U/L (12-78); BILIRUBIN,TOTAL 0.8 MG/DL (0.2-1.0); BLOOD UREA NITROGEN 16 MG/DL (7-18); CALCIUM LEVEL 8.9 MG/DL (8.5-10.1); CARBON DIOXIDE LEVEL 25 MEQ/L (21-32); CHLORIDE LEVEL 103 MEQ/L (98-107); CREATININE FOR GFR 1.18 MG/DL (0.70-1.30); GLOMERULAR FILTRATION RATE > 60.0 (>60); GLUCOSE, FASTING 190 MG/DL (70-100); POTASSIUM SERUM 4.6 MEQ/L (3.5-5.1); SODIUM LEVEL 138 MEQ/L (136-145); TOTAL PROTEIN 7.3 GM/DL (6.4-8.2)
[2019-09-09 17:48] LABS: TOTAL 25(OH) VITAMIN D 38.6 NG/ML (30.0-100.0)
== END ==
LOC: M SFHCPLAZ 15:21
PROVIDERS: ATTEND Family Medicine
DX: N18.3 Chronic kidney disease, stage 3 (moderate) (principal); E66.01 Morbid (severe) obesity due to excess calories; E11.65 Type 2 diabetes mellitus with hyperglycemia; E55.9 Vitamin D deficiency, unspecified; Z23 Encounter for immunization
CPT/HCPCS: 36415; 80053; 82306; 83036; 90682; G0008; G0463

== ENCOUNTER → 2019-12-06 | Outpatient (REF) | payer MEDICARE ==
[2019-12-06 16:54] LABS: BASO # 0.1 10^3/uL (0.0-0.2); BASO % 0.7 % (0.0-1.0); EOS # 0.2 10^3/uL (0.0-0.5); EOS % 2.8 % (0.0-3.0); HEMATOCRIT 41.8 % (42.0-52.0); HEMOGLOBIN 12.5 g/dl (13.5-17.5); LYMPH # 1.1 10^3/uL (1.5-5.0); LYMPH % 15.6 % (24.0-44.0); MEAN CORPUSCULAR HEMOGLOBIN 20.8 pg (27.0-33.0); MEAN CORPUSCULAR HGB CONC 29.9 g/dl (32.0-36.5); MEAN CORPUSCULAR VOLUME 69.4 fl (80.0-96.0); MONO # 0.6 10^3/uL (0.0-0.8); MONO % 7.7 % (0.0-5.0); NEUTROPHILS # 5.2 10^3/uL (1.5-8.5); NEUTROPHILS % 72.8 % (36.0-66.0); PLATELET COUNT, AUTOMATED 368 10^3/uL (150-450); RED BLOOD COUNT 6.02 10^6/uL (4.30-6.10); WHITE BLOOD COUNT 7.2 10^3/uL (4.0-10.0)
[2019-12-06 17:09] LABS: ALBUMIN 3.9 GM/DL (3.2-5.2); ALT/SGPT 40 U/L (12-78); BILIRUBIN,TOTAL 0.4 MG/DL (0.2-1.0); BLOOD UREA NITROGEN 14 MG/DL (7-18); CALCIUM LEVEL 8.9 MG/DL (8.5-10.1); CARBON DIOXIDE LEVEL 26 MEQ/L (21-32); CHLORIDE LEVEL 103 MEQ/L (98-107); CHOLESTEROL LEVEL 258 MG/DL (<200); CHOLESTEROL RISK RATIO 5.058 (<5); CREATININE FOR GFR 1.16 MG/DL (0.70-1.30); FOLATE 16.9 NG/ML; FREE T4 1.17 NG/DL (0.76-1.46); GLOMERULAR FILTRATION RATE > 60.0 (>60); GLUCOSE, FASTING 268 MG/DL (70-100); HDL CHOLESTEROL 51 MG/DL (>40); LDL CHOLESTEROL 166 MG/DL (<100); NON-HDL-C 207 MG/DL; POTASSIUM SERUM 4.5 MEQ/L (3.5-5.1); SODIUM LEVEL 136 MEQ/L (136-145); TOTAL PROTEIN 7.5 GM/DL (6.4-8.2); TRIGLYCERIDES LEVEL 206 MG/DL (<150); VITAMIN B12 LEVEL 603 PG/ML
[2019-12-06 17:17] LABS: HEMOGLOBIN A1c 9.6 %
[2019-12-07 10:59] LABS: DRVV SCREEN 36.3 SEC
[2019-12-07 11:03] LABS: PTT LUPUS TYPE ANTICOAG SCREEN 0.9 (0-1.2)
== END ==
LOC: M LABNEURO 13:09
PROVIDERS: ATTEND Psychiatry & Neurology Neurology
DX: G35 Multiple sclerosis (principal); E78.00 Pure hypercholesterolemia, unspecified; E07.9 Disorder of thyroid, unspecified

== ENCOUNTER → 2020-06-14 | Outpatient (CLI) | payer MEDICARE ==
[~2020-06-14] MED LIST changes: -LISI-1046 PO; +LISI2.5T2 PO; +PANT40TA29 PO; -PANT40TA3 PO
[2020-06-14 17:12] LABS: ALBUMIN 3.7 GM/DL (3.2-5.2); ALT/SGPT 29 U/L (12-78); BILIRUBIN,TOTAL 0.4 MG/DL (0.2-1.0); BLOOD UREA NITROGEN 22 MG/DL (7-18); CALCIUM LEVEL 8.9 MG/DL (8.5-10.1); CARBON DIOXIDE LEVEL 27 MEQ/L (21-32); CHLORIDE LEVEL 107 MEQ/L (98-107); CHOLESTEROL LEVEL 248 MG/DL (<200); CHOLESTEROL RISK RATIO 4.203 (<5); CREATININE FOR GFR 1.13 MG/DL (0.70-1.30); GLOMERULAR FILTRATION RATE > 60.0 (>60); GLUCOSE, FASTING 201 MG/DL (70-100); HDL CHOLESTEROL 59 MG/DL (>40); LDL CHOLESTEROL 156 MG/DL (<100); NON-HDL-C 189 MG/DL; POTASSIUM SERUM 4.5 MEQ/L (3.5-5.1); SODIUM LEVEL 140 MEQ/L (136-145); TOTAL PROTEIN 7.7 GM/DL (6.4-8.2); TRIGLYCERIDES LEVEL 167 MG/DL (<150)
[2020-06-14 17:22] LABS: HEMOGLOBIN A1c 8.3 %
[2020-06-14 17:43] LABS: HEMATOCRIT 34.1 % (42.0-52.0); HEMOGLOBIN 10.2 g/dl (13.5-17.5); MEAN CORPUSCULAR HEMOGLOBIN 19.1 pg (27.0-33.0); MEAN CORPUSCULAR HGB CONC 29.9 g/dl (32.0-36.5); MEAN CORPUSCULAR VOLUME 63.7 fl (80.0-96.0); PLATELET COUNT, AUTOMATED 347 10^3/uL (150-450); RED BLOOD COUNT 5.35 10^6/uL (4.30-6.10); WHITE BLOOD COUNT 9.3 10^3/uL (4.0-10.0)
== END ==
LOC: M PLALAB 15:02
PROVIDERS: ATTEND Family Medicine
DX: E11.9 Type 2 diabetes mellitus without complications (principal); E78.2 Mixed hyperlipidemia; E55.9 Vitamin D deficiency, unspecified
CPT/HCPCS: 36415; 80053; 80061; 82306; 83036; 85027; G0463

== ENCOUNTER → 2020-09-25 | Outpatient (REF) | payer MEDICARE ==
[2020-09-25 17:47] LABS: HEMATOCRIT 34.3 % (42.0-52.0); HEMOGLOBIN 9.5 g/dl (13.5-17.5); MEAN CORPUSCULAR HGB CONC 27.7 g/dl (32.0-36.5); MEAN CORPUSCULAR VOLUME 61.4 fl (80.0-96.0); PLATELET COUNT, AUTOMATED 370 10^3/uL (150-450); RED BLOOD COUNT 5.59 10^6/uL (4.30-6.10)
[2020-09-25 18:08] LABS: BLOOD UREA NITROGEN 24 MG/DL (7-18); CALCIUM LEVEL 9.2 MG/DL (8.5-10.1); CARBON DIOXIDE LEVEL 24 MEQ/L (21-32); CHLORIDE LEVEL 107 MEQ/L (98-107); CREATININE FOR GFR 1.15 MG/DL (0.70-1.30); FERRITIN 6 NG/ML (26-388); GLOMERULAR FILTRATION RATE > 60.0 (>60); GLUCOSE, FASTING 89 MG/DL (70-100); IRON (FE) 20 UG/DL (65-175); POTASSIUM SERUM 4.1 MEQ/L (3.5-5.1); SODIUM LEVEL 140 MEQ/L (136-145); TOTAL IRON BINDING CAPACITY 402 UG/DL (250-450)
[2020-09-25 18:22] LABS: HEMOGLOBIN A1c 7.5 %
== END ==
LOC: M SFHCPLAZ 15:42
PROVIDERS: ATTEND Family Medicine
DX: D64.9 Anemia, unspecified (principal); E11.65 Type 2 diabetes mellitus with hyperglycemia; Z23 Encounter for immunization
CPT/HCPCS: 36415; 80048; 82728; 83036; 83550; 85027; 90682; 90732; G0008; G0009; G0463

== ENCOUNTER → 2021-02-01 | Outpatient (REF) | payer MEDICARE ==
[~2021-02-01] MED LIST changes: +GABA-282 PO; -GABA-843 PO
[2021-02-01 17:59] LABS: HEMATOCRIT 35.4 % (42.0-52.0); MEAN CORPUSCULAR HEMOGLOBIN 18.1 pg (27.0-33.0); MEAN CORPUSCULAR HGB CONC 28.2 g/dl (32.0-36.5); PLATELET COUNT, AUTOMATED 370 10^3/uL (150-450); RED BLOOD COUNT 5.53 10^6/uL (4.30-6.10); WHITE BLOOD COUNT 10.4 10^3/uL (4.0-10.0)
[2021-02-01 19:34] LABS: HEMOGLOBIN A1c 7.7 %
[2021-02-01 21:04] LABS: BLOOD UREA NITROGEN 27 MG/DL (7-18); CALCIUM LEVEL 9.4 MG/DL (8.5-10.1); CARBON DIOXIDE LEVEL 25 MEQ/L (21-32); CHLORIDE LEVEL 103 MEQ/L (98-107); FERRITIN 7 NG/ML (26-388); GLOMERULAR FILTRATION RATE > 60.0 (>60); GLUCOSE, FASTING 163 MG/DL (70-100); POTASSIUM SERUM 4.1 MEQ/L (3.5-5.1); SODIUM LEVEL 137 MEQ/L (136-145)
== END ==
LOC: M SFHCPLAZ 15:28
PROVIDERS: ATTEND Family Medicine
DX: N18.31 Chronic kidney disease, stage 3a (principal); E11.65 Type 2 diabetes mellitus with hyperglycemia; H61.22 Impacted cerumen, left ear

== ENCOUNTER 2021-02-21 12:19 | Outpatient (RCR) | payer MEDICARE | END 2021-03-19 | LOC: M PT 12:19 | PROVIDERS: ATTEND Family Medicine | DX: G35 Multiple sclerosis (principal) ==

== ENCOUNTER → 2021-05-22 | Outpatient (CLI) | payer MEDICARE ==
[~2021-05-22] MED LIST changes: -LISI2.5T2 PO; +LISI2.5T9 PO
[2021-05-22 17:23] LABS: HEMOGLOBIN 9.3 g/dl (13.5-17.5); MEAN CORPUSCULAR HEMOGLOBIN 17.1 pg (27.0-33.0); MEAN CORPUSCULAR HGB CONC 28.2 g/dl (32.0-36.5); MEAN CORPUSCULAR VOLUME 60.6 fl (80.0-96.0); PLATELET COUNT, AUTOMATED 324 10^3/uL (150-450); RED BLOOD COUNT 5.45 10^6/uL (4.30-6.10); WHITE BLOOD COUNT 12.6 10^3/uL (4.0-10.0)
[2021-05-22 17:50] LABS: HEMOGLOBIN A1c 7.1 %
[2021-05-22 18:04] LABS: BLOOD UREA NITROGEN 24 MG/DL (7-18); CALCIUM LEVEL 9.3 MG/DL (8.5-10.1); CARBON DIOXIDE LEVEL 27 MEQ/L (21-32); CHLORIDE LEVEL 105 MEQ/L (98-107); CREATININE FOR GFR 1.04 MG/DL (0.70-1.30); FERRITIN 5 NG/ML (26-388); GLOMERULAR FILTRATION RATE > 60.0 (>60); GLUCOSE, FASTING 39 MG/DL (70-100); POTASSIUM SERUM 4.3 MEQ/L (3.5-5.1); SODIUM LEVEL 140 MEQ/L (136-145)
== END ==
LOC: M PLALAB 16:02
PROVIDERS: ATTEND Family Medicine
DX: E11.65 Type 2 diabetes mellitus with hyperglycemia (principal); D50.9 Iron deficiency anemia, unspecified
CPT/HCPCS: 36415; 80048; 82728; 83036; 85027; G0463

== ENCOUNTER → 2021-08-31 | Outpatient (CLI) | payer MEDICARE | LOC: M PLALAB 15:36 | PROVIDERS: ATTEND Family Medicine | DX: G89.4 Chronic pain syndrome (principal); E11.65 Type 2 diabetes mellitus with hyperglycemia; Z23 Encounter for immunization | CPT/HCPCS: 36415; 80307; 83036; 90682; G0008; G0463 ==

== ENCOUNTER → 2021-12-14 | Outpatient (CLI) | payer MEDICARE ==
[2021-12-14 17:19] LABS: HEMATOCRIT 44.2 % (42.0-52.0); HEMOGLOBIN 13.6 g/dl (13.5-17.5); MEAN CORPUSCULAR HEMOGLOBIN 21.2 pg (27.0-33.0); MEAN CORPUSCULAR HGB CONC 30.8 g/dl (32.0-36.5); PLATELET COUNT, AUTOMATED 284 10^3/uL (150-450); RED BLOOD COUNT 6.41 10^6/uL (4.30-6.10); WHITE BLOOD COUNT 9.3 10^3/uL (4.0-10.0)
[2021-12-14 17:29] LABS: HEMOGLOBIN A1c 8.8 %
== END ==
LOC: M PLALAB 14:25
PROVIDERS: ATTEND Family Medicine
DX: E11.65 Type 2 diabetes mellitus with hyperglycemia (principal); D50.9 Iron deficiency anemia, unspecified

== ENCOUNTER 2022-02-12 14:03 | Outpatient (RCR) | payer MEDICARE | END 2022-02-16 | LOC: M PT 14:03 | PROVIDERS: ATTEND Family Medicine | DX: G35 Multiple sclerosis (principal) ==

== ENCOUNTER → 2022-04-17 | Outpatient (CLI) | payer MEDICARE ==
[2022-04-17 15:32] LABS: HEMATOCRIT 42.5 % (42.0-52.0); HEMOGLOBIN 13.1 g/dl (13.5-17.5); MEAN CORPUSCULAR HEMOGLOBIN 22.2 pg (27.0-33.0); MEAN CORPUSCULAR HGB CONC 30.8 g/dl (32.0-36.5); PLATELET COUNT, AUTOMATED 293 10^3/uL (150-450)
[2022-04-17 16:00] LABS: ALBUMIN 3.7 GM/DL (3.2-5.2); ALT/SGPT 31 U/L (12-78); BILIRUBIN,TOTAL 0.3 MG/DL (0.2-1.0); BLOOD UREA NITROGEN 18 MG/DL (7-18); CARBON DIOXIDE LEVEL 27 MEQ/L (21-32); CHLORIDE LEVEL 105 MEQ/L (98-107); FERRITIN 10 NG/ML (26-388); GLOMERULAR FILTRATION RATE > 60.0 (>60); GLUCOSE, FASTING 176 MG/DL (70-100); IRON (FE) 21 UG/DL (65-175); POTASSIUM SERUM 4.4 MEQ/L (3.5-5.1); SODIUM LEVEL 138 MEQ/L (136-145)
[2022-04-17 16:11] LABS: HEMOGLOBIN A1c 7.4 %
== END ==
LOC: M PLALAB 12:23
PROVIDERS: ATTEND Physician Assistant
DX: E11.65 Type 2 diabetes mellitus with hyperglycemia (principal); G35 Multiple sclerosis

== ENCOUNTER → 2022-08-22 | Outpatient (CLI) | payer MEDICARE ==
[2022-08-22 17:42] LABS: BASO # 0.1 10^3/uL (0.0-0.2); BASO % 0.6 % (0.0-1.0); EOS # 0.2 10^3/uL (0.0-0.5); EOS % 2.3 % (0.0-3.0); HEMATOCRIT 44.1 % (42.0-52.0); HEMOGLOBIN 13.6 g/dl (13.5-17.5); LYMPH # 1.5 10^3/uL (1.5-5.0); LYMPH % 14.3 % (24.0-44.0); MEAN CORPUSCULAR HEMOGLOBIN 22.9 pg (27.0-33.0); MEAN CORPUSCULAR HGB CONC 30.8 g/dl (32.0-36.5); MEAN CORPUSCULAR VOLUME 74.1 fl (80.0-96.0); MONO # 0.8 10^3/uL (0.0-0.8); MONO % 8.1 % (2.0-8.0); NEUTROPHILS # 7.7 10^3/uL (1.5-8.5); NEUTROPHILS % 74.3 % (36.0-66.0); PLATELET COUNT, AUTOMATED 293 10^3/uL (150-450); RED BLOOD COUNT 5.95 10^6/uL (4.30-6.10); WHITE BLOOD COUNT 10.3 10^3/uL (4.0-10.0)
[2022-08-22 18:34] LABS: ALBUMIN 3.7 GM/DL (3.2-5.2); ALT/SGPT 36 U/L (12-78); BILIRUBIN,TOTAL 0.4 MG/DL (0.2-1.0); BLOOD UREA NITROGEN 21 MG/DL (7-18); CALCIUM LEVEL 9.4 MG/DL (8.5-10.1); CARBON DIOXIDE LEVEL 27 MEQ/L (21-32); CHLORIDE LEVEL 105 MEQ/L (98-107); CHOLESTEROL LEVEL 244 MG/DL (<200); CHOLESTEROL RISK RATIO 4.135 (<5); CREATININE FOR GFR 1.03 MG/DL (0.70-1.30); GLOMERULAR FILTRATION RATE > 60.0 (>60); GLUCOSE, FASTING 81 MG/DL (70-100); HDL CHOLESTEROL 59 MG/DL (>40); IRON (FE) 29 UG/DL (65-175); LDL CHOLESTEROL 148 MG/DL (<100); NON-HDL-C 185 MG/DL; POTASSIUM SERUM 4.2 MEQ/L (3.5-5.1); SODIUM LEVEL 141 MEQ/L (136-145); TOTAL IRON BINDING CAPACITY 362 UG/DL (250-450); TOTAL PROTEIN 6.9 GM/DL (6.4-8.2); TRIGLYCERIDES LEVEL 184 MG/DL (<150)
[2022-08-22 18:43] LABS: HEMOGLOBIN A1c 8.1 %
== END ==
LOC: M PLALAB 15:10
PROVIDERS: ATTEND Physician Assistant
DX: E11.65 Type 2 diabetes mellitus with hyperglycemia (principal); D50.9 Iron deficiency anemia, unspecified

== ENCOUNTER → 2022-08-22 | Outpatient (REF) | payer MEDICARE | LOC: M SFHCPLAZ 14:35 | PROVIDERS: ATTEND Physician Assistant | DX: E11.65 Type 2 diabetes mellitus with hyperglycemia (principal); D50.9 Iron deficiency anemia, unspecified; Z53.8 Procedure and treatment not carried out for other reasons ==

== ENCOUNTER → 2023-01-10 | Outpatient (CLI) | payer MEDICARE, MEDICAID ==
[2023-01-10 19:03] LABS: BASO # 0.1 10^3/uL (0.0-0.2); BASO % 0.6 % (0.0-1.0); EOS # 0.2 10^3/uL (0.0-0.5); EOS % 2.3 % (0.0-3.0); HEMATOCRIT 44.5 % (42.0-52.0); HEMOGLOBIN 13.6 g/dl (13.5-17.5); LYMPH # 1.5 10^3/uL (1.5-5.0); LYMPH % 18.5 % (24.0-44.0); MEAN CORPUSCULAR HEMOGLOBIN 22.3 pg (27.0-33.0); MEAN CORPUSCULAR HGB CONC 30.6 g/dl (32.0-36.5); MONO # 0.7 10^3/uL (0.0-0.8); MONO % 8.9 % (2.0-8.0); NEUTROPHILS # 5.5 10^3/uL (1.5-8.5); NEUTROPHILS % 69.3 % (36.0-66.0); PLATELET COUNT, AUTOMATED 247 10^3/uL (150-450); WHITE BLOOD COUNT 7.9 10^3/uL (4.0-10.0)
[2023-01-10 19:07] LABS: IRON (FE) 32 UG/DL (65-175); PERCENT SATURATION 9.1 % (19.7-50.0); TOTAL IRON BINDING CAPACITY 351 UG/DL (250-425)
[2023-01-10 19:08] LABS: ALBUMIN 3.9 G/DL (3.2-5.2); ALKALINE PHOSPHATASE 57 U/L (46-116); ALT/SGPT 28 U/L (7.0-40); AST/SGOT 9 U/L (<34); BILIRUBIN,TOTAL 0.5 MG/DL (0.3-1.2); BLOOD UREA NITROGEN 20 MG/DL (9-23); CALCIUM LEVEL 9.8 MG/DL (8.5-10.1); CARBON DIOXIDE LEVEL 29 MMOL/L (20-31); CHLORIDE LEVEL 107 MMOL/L (98-107); CREATININE FOR GFR 1.01 MG/DL (0.70-1.30); GLOMERULAR FILTRATION RATE > 60.0 (>60); GLUCOSE, FASTING 87 MG/DL (60-100); POTASSIUM SERUM 4.5 MMOL/L (3.5-5.1); SODIUM LEVEL 141 MMOL/L (136-145); TOTAL PROTEIN 6.8 G/DL (5.7-8.2)
[2023-01-10 19:10] LABS: TOTAL 25(OH) VITAMIN D 30.5 NG/ML (20.0-100.0)
[2023-01-10 19:13] LABS: VITAMIN B12 LEVEL 539 PG/ML (211-911)
== END ==
LOC: M PLALAB 15:27
PROVIDERS: ATTEND Physician Assistant
DX: D50.9 Iron deficiency anemia, unspecified (principal); G89.29 Other chronic pain; E11.65 Type 2 diabetes mellitus with hyperglycemia; E55.9 Vitamin D deficiency, unspecified; Z79.899 Other long term (current) drug therapy

== ENCOUNTER → 2023-04-24 | Outpatient (CLI) | payer MEDICARE, MEDICAID ==
[2023-04-24 17:20] LABS: BASO # 0.1 10^3/uL (0.0-0.2); BASO % 0.6 % (0.0-1.0); EOS # 0.3 10^3/uL (0.0-0.5); EOS % 2.4 % (0.0-3.0); HEMATOCRIT 42.2 % (42.0-52.0); HEMOGLOBIN 13.4 g/dl (13.5-17.5); LYMPH # 1.4 10^3/uL (1.5-5.0); LYMPH % 12.9 % (24.0-44.0); MEAN CORPUSCULAR HGB CONC 31.8 g/dl (32.0-36.5); MEAN CORPUSCULAR VOLUME 72.5 fl (80.0-96.0); NEUTROPHILS # 7.9 10^3/uL (1.5-8.5); NEUTROPHILS % 74.7 % (36.0-66.0); PLATELET COUNT, AUTOMATED 235 10^3/uL (150-450); RED BLOOD COUNT 5.82 10^6/uL (4.30-6.10); WHITE BLOOD COUNT 10.6 10^3/uL (4.0-10.0)
[2023-04-24 17:26] LABS: HEMOGLOBIN A1c 7.9 % (4.0-6.0)
[2023-04-24 17:43] LABS: ALBUMIN 3.6 G/DL (3.2-5.2); ALKALINE PHOSPHATASE 66 U/L (46-116); ALT/SGPT 30 U/L (7.0-40); AST/SGOT 13 U/L (<34); BILIRUBIN,TOTAL 0.5 MG/DL (0.3-1.2); BLOOD UREA NITROGEN 22 MG/DL (9-23); CALCIUM LEVEL 10.4 MG/DL (8.5-10.1); CARBON DIOXIDE LEVEL 28 MMOL/L (20-31); CHLORIDE LEVEL 106 MMOL/L (98-107); CHOLESTEROL LEVEL 210 MG/DL (<200); CHOLESTEROL RISK RATIO 4.37 (<5); CREATININE FOR GFR 1.07 MG/DL (0.70-1.30); GLOMERULAR FILTRATION RATE > 60.0 (>60); GLUCOSE, FASTING 81 MG/DL (60-100); LDL CHOLESTEROL 117.4 MG/DL (<100); POTASSIUM SERUM 4.8 MMOL/L (3.5-5.1); SODIUM LEVEL 138 MMOL/L (136-145); TOTAL PROTEIN 6.7 G/DL (5.7-8.2); TRIGLYCERIDES LEVEL 223 MG/DL (<150)
[2023-04-24 17:44] LABS: FERRITIN 25.8 NG/ML (10.5-307.3); FREE T4 1.11 NG/DL (0.89-1.76)
[2023-04-24 17:45] LABS: TOTAL 25(OH) VITAMIN D 33.5 NG/ML (20.0-100.0); VITAMIN B12 LEVEL 511 PG/ML (211-911)
== END ==
LOC: M PLALAB 16:23
PROVIDERS: ATTEND Physician Assistant
DX: E11.65 Type 2 diabetes mellitus with hyperglycemia (principal); F33.41 Major depressive disorder, recurrent, in partial remission; E55.9 Vitamin D deficiency, unspecified; G35 Multiple sclerosis; G89.29 Other chronic pain; E78.2 Mixed hyperlipidemia; D50.9 Iron deficiency anemia, unspecified

== ENCOUNTER → 2023-09-03 | Outpatient (CLI) | payer MEDICARE, MEDICAID ==
[2023-09-03 18:50] LABS: BASO # 0.1 10^3/uL (0.0-0.2); BASO % 0.7 % (0.0-1.0); EOS # 0.3 10^3/uL (0.0-0.5); EOS % 3.5 % (0.0-3.0); HEMATOCRIT 43.6 % (42.0-52.0); HEMOGLOBIN 13.8 g/dl (13.5-17.5); LYMPH # 1.3 10^3/uL (1.5-5.0); LYMPH % 16.3 % (24.0-44.0); MEAN CORPUSCULAR HEMOGLOBIN 23.5 pg (27.0-33.0); MEAN CORPUSCULAR HGB CONC 31.7 g/dl (32.0-36.5); MEAN CORPUSCULAR VOLUME 74.3 fl (80.0-96.0); MONO # 0.8 10^3/uL (0.0-0.8); MONO % 9.9 % (2.0-8.0); NEUTROPHILS # 5.6 10^3/uL (1.5-8.5); NEUTROPHILS % 69.1 % (36.0-66.0); PLATELET COUNT, AUTOMATED 276 10^3/uL (150-450); RED BLOOD COUNT 5.87 10^6/uL (4.30-6.10); WHITE BLOOD COUNT 8.1 10^3/uL (4.0-10.0)
[2023-09-03 18:59] LABS: HEMOGLOBIN A1c 7.6 % (4.0-6.0)
[2023-09-03 19:00] LABS: ALBUMIN 3.7 G/DL (3.2-5.2); ALKALINE PHOSPHATASE 70 U/L (46-116); ALT/SGPT 30 U/L (7.0-40); AST/SGOT 17 U/L (<34); BILIRUBIN,TOTAL 0.4 MG/DL (0.3-1.2); BLOOD UREA NITROGEN 20 MG/DL (9-23); CALCIUM LEVEL 10.1 MG/DL (8.5-10.1); CARBON DIOXIDE LEVEL 26 MMOL/L (20-31); CHLORIDE LEVEL 105 MMOL/L (98-107); CREATININE FOR GFR 0.84 MG/DL (0.70-1.30); FERRITIN 33.1 NG/ML (10.5-307.3); GLOMERULAR FILTRATION RATE > 60.0 (>60); GLUCOSE, FASTING 145 MG/DL (60-100); SODIUM LEVEL 140 MMOL/L (136-145)
== END ==
LOC: M PLALAB 16:20
PROVIDERS: ATTEND Physician Assistant
DX: E11.65 Type 2 diabetes mellitus with hyperglycemia (principal); E66.01 Morbid (severe) obesity due to excess calories; R53.82 Chronic fatigue, unspecified; D50.9 Iron deficiency anemia, unspecified; Z79.4 Long term (current) use of insulin

== ENCOUNTER → 2024-01-29 | Outpatient (CLI) | payer MEDICARE, MEDICAID ==
[2024-01-29 18:21] LABS: ALBUMIN 3.8 G/DL (3.2-5.2); ALKALINE PHOSPHATASE 70 U/L (46-116); ALT/SGPT 32 U/L (7.0-40); AST/SGOT 14 U/L (<34); BILIRUBIN,TOTAL 0.5 MG/DL (0.3-1.2); BLOOD UREA NITROGEN 25 MG/DL (9-23); CALCIUM LEVEL 10.1 MG/DL (8.5-10.1); CARBON DIOXIDE LEVEL 30 MMOL/L (20-31); CHLORIDE LEVEL 104 MMOL/L (98-107); CHOLESTEROL LEVEL 144 MG/DL (<200); CHOLESTEROL RISK RATIO 2.69 (<5); CREATININE FOR GFR 0.96 MG/DL (0.70-1.30); GLOMERULAR FILTRATION RATE > 60.0 (>60); GLUCOSE, FASTING 179 MG/DL (60-100); HDL CHOLESTEROL 53.4 MG/DL (>40); HEMOGLOBIN A1c 7.7 % (4.0-6.0); LDL CHOLESTEROL 58.8 MG/DL (<100); NON-HDL-C 90.6 MG/DL; POTASSIUM SERUM 4.5 MMOL/L (3.5-5.1); SODIUM LEVEL 140 MMOL/L (136-145); TOTAL PROTEIN 6.7 G/DL (5.7-8.2); TRIGLYCERIDES LEVEL 159 MG/DL (<150)
[2024-01-29 18:23] LABS: TOTAL 25(OH) VITAMIN D 35.7 NG/ML (20.0-100.0)
[2024-01-29 18:24] LABS: TESTOSTERONE 209 NG/DL (241-827)
[2024-01-29 18:25] LABS: VITAMIN B12 LEVEL 647 PG/ML (211-911)
[2024-01-29 18:26] LABS: BASO % 0.4 % (0.0-1.0); EOS # 0.2 10^3/uL (0.0-0.5); EOS % 2.3 % (0.0-3.0); HEMATOCRIT 45.7 % (42.0-52.0); HEMOGLOBIN 14.7 g/dl (13.5-17.5); LYMPH # 1.5 10^3/uL (1.5-5.0); LYMPH % 14.9 % (24.0-44.0); MEAN CORPUSCULAR HEMOGLOBIN 24.8 pg (27.0-33.0); MEAN CORPUSCULAR HGB CONC 32.2 g/dl (32.0-36.5); MEAN CORPUSCULAR VOLUME 77.1 fl (80.0-96.0); MONO # 0.9 10^3/uL (0.0-0.8); MONO % 8.9 % (2.0-8.0); NEUTROPHILS # 7.4 10^3/uL (1.5-8.5); NEUTROPHILS % 73.2 % (36.0-66.0); PLATELET COUNT, AUTOMATED 218 10^3/uL (150-450); RED BLOOD COUNT 5.93 10^6/uL (4.30-6.10); WHITE BLOOD COUNT 10.1 10^3/uL (4.0-10.0)
== END ==
LOC: M PLALAB 15:01
PROVIDERS: ATTEND Physician Assistant
DX: E11.65 Type 2 diabetes mellitus with hyperglycemia (principal); E55.9 Vitamin D deficiency, unspecified; E78.2 Mixed hyperlipidemia; E29.1 Testicular hypofunction; D50.9 Iron deficiency anemia, unspecified

== ENCOUNTER 2024-06-04 21:36 | Inpatient (IN) | payer MEDICARE, MEDICAID ==
[~2024-06-04] VITALS: Ht 188 cm; Wt 186.4 kg
[2024-06-04] MEDS: ACETAMINOPHEN *IV* 1,000 MG in IV 1 EA IV ONE (22:01)
[2024-06-04] MEDS: cefTRIAXone SOD 2 GM in D5W MINI-BAG PLUS 50 ML IV ONE (22:01)
[2024-06-04] MEDS: NS 2,466 ML in IV 1 EA IV STA (22:02)
[2024-06-04 22:12] LABS: ABG BASE EXCESS -5.8 (-2.0-2.0); ABG HCO3 17.8 MMOL/L (22.0-26.0); ABG O2 SATURATION 96.2 % (95.0-99.0); ABG PARTIAL PRESSURE O2 82.2 mmHg (75.0-100.0); ABG STANDARD HCO3 19.8 MMOL/L. (22.0-26.0); ABG TOTAL CO2 18.7 MMOL/L (22.0-29.0)
[2024-06-04 22:19] LABS: HEMATOCRIT 47.3 % (42.0-52.0); HEMOGLOBIN 15.5 g/dl (13.5-17.5); MEAN CORPUSCULAR HEMOGLOBIN 24.5 pg (27.0-33.0); MEAN CORPUSCULAR HGB CONC 32.8 g/dl (32.0-36.5); MEAN CORPUSCULAR VOLUME 74.8 fl (80.0-96.0); PLATELET COUNT, AUTOMATED 154 10^3/uL (150-450); RED BLOOD COUNT 6.32 10^6/uL (4.30-6.10)
[2024-06-04 22:24] LABS: CK-MB VALUE MASS < 1.0 NG/ML (<3.6); INR 1.2; PROTHROMBIN TIME 14.9 SECONDS (12.5-14.5)
[2024-06-04 22:26] LABS: AMYLASE 22 U/L (30-118)
[2024-06-04 22:33] LABS: PROCALCITONIN 15.56 ng/ml
[2024-06-04 22:35] LABS: ALBUMIN 3.2 G/DL (3.2-5.2); ALKALINE PHOSPHATASE 128 U/L (46-116); ALT/SGPT 53 U/L (7.0-40); AST/SGOT 75 U/L (<34); BLOOD UREA NITROGEN 19 MG/DL (9-23); CARBON DIOXIDE LEVEL 19 MMOL/L (20-31); CHLORIDE LEVEL 103 MMOL/L (98-107); CPK CREATINE PHOSPHOKINASE 148 U/L (46-171); CREATININE FOR GFR 1.63 MG/DL (0.70-1.30); GLOMERULAR FILTRATION RATE 48.3 (>60); GLUCOSE, FASTING 465 MG/DL (60-100); MB/CK RELATIVE INDEX 0.67 (< OR =4); POTASSIUM SERUM 4.9 MMOL/L (3.5-5.1); SODIUM LEVEL 133 MMOL/L (136-145); TOTAL PROTEIN 6.6 G/DL (5.7-8.2)
[2024-06-04 23:31] LABS: APPEARANCE, URINE CLOUDY (CLEAR); BACTERIA, URINE AUTO NEGATIVE (NEGATIVE); BILIRUBIN, URINE AUTO NEGATIVE (NEGATIVE); BLOOD, URINE BLOOD 3+ (NEGATIVE); COLOR, URINE YELLOW (YELLOW); GLUCOSE, URINE (UA) AUTO 3+ mg/dL (NEGATIVE); KETONE, URINE AUTO 1+ mg/dL (NEGATIVE); LEUKOCYTE ESTERASE, URINE AUTO 2+ (NEGATIVE); MUCUS, URINE SMALL (NEGATIVE); NITRITE, URINE AUTO NEGATIVE (NEGATIVE); PROTEIN, URINE AUTO 1+ mg/dL (NEGATIVE); RBC, URINE AUTO TNTC /HPF (0-3); SPECIFIC GRAVITY URINE AUTO 1.021 (1.002-1.035); SQUAMOUS EPITHELIAL CELL UR AU 0 /HPF (0-6); UROBILINOGEN, URINE AUTO 0.2 mg/dL (0.0-2.0); WBC, URINE AUTO TNTC /HPF (0-3)
[2024-06-04] MEDS: IBUPROFEN 600MG TAB PO ONE (23:35)
[2024-06-04] MEDS ORDERED: ISOVUE-370 76% 100ML VIAL As Ordered ONE (23:41)
[2024-06-04 23:52] LABS: ATYPICAL LYMPH 3 % (0-5); LYMPHOCYTES 12 % (16-44); MONOCYTES 3 % (0-5); NEUTROPHILS 76 % (28-66)
[2024-06-04 23:56] LABS: POLYCHROMASIA 1+
[2024-06-04 23:58] LABS: PLATELET ESTIMATE NORMAL (NORMAL)
[2024-06-05] VITALS (18 sets, daily range): BP systolic 90–106; BP diastolic 52–56; TEMP 97.3–101.3; O2SAT 92–97
[2024-06-05] MEDS ORDERED: VANCOMYCIN HCL 2,000 MG, VIAL MATE ADAPTER 1 EACH in D5W 250 ML IV STA (01:25)
[2024-06-05] MEDS ORDERED: GLUCAGON INJ 1MG VIAL SC PRN (02:20)
[2024-06-05] MEDS ORDERED: DEXTROSE 50% 50ML SYRINGE IV PRN (02:20)
[2024-06-05] MEDS ORDERED: GLUCOSE 4 GM CHEW PO PRN (02:20)
[2024-06-05] MEDS: PIPERACILLIN/TAZOBACTAM SOD 4.5 GM in D5W MINI-BAG PLUS 50 ML IV STA (02:32)
[2024-06-05] MEDS: NS 1,000 ML IV SCH (02:55)
[2024-06-05] MEDS: ACETAMINOPHEN *IV* 1,000 MG in IV 1 EA IV ONE (03:05)
[2024-06-05] MEDS: VANCOMYCIN HCL 1,000 MG, VIAL MATE ADAPTER 1 EACH in D5W 250 ML IV ONE ×2 (04:23→05:24)
[2024-06-05 05:45] LABS: BASO % 0.3 % (0.0-1.0); EOS % 0.3 % (0.0-3.0); HEMATOCRIT 44.5 % (42.0-52.0); HEMOGLOBIN 14.2 g/dl (13.5-17.5); LYMPH # 0.2 10^3/uL (1.5-5.0); LYMPH % 2.1 % (24.0-44.0); MEAN CORPUSCULAR HEMOGLOBIN 24.3 pg (27.0-33.0); MEAN CORPUSCULAR HGB CONC 31.9 g/dl (32.0-36.5); MEAN CORPUSCULAR VOLUME 76.1 fl (80.0-96.0); MONO # 0.1 10^3/uL (0.0-0.8); NEUTROPHILS # 11.2 10^3/uL (1.5-8.5); NEUTROPHILS % 95.4 % (36.0-66.0); PLATELET COUNT, AUTOMATED 104 10^3/uL (150-450); RED BLOOD COUNT 5.85 10^6/uL (4.30-6.10); WHITE BLOOD COUNT 11.7 10^3/uL (4.0-10.0)
[2024-06-05 06:10] LABS: ALBUMIN 2.8 G/DL (3.2-5.2); BILIRUBIN,TOTAL 1.3 MG/DL (0.3-1.2); CALCIUM LEVEL 8.6 MG/DL (8.5-10.1); CREATININE FOR GFR 2.44 MG/DL (0.70-1.30); GLOMERULAR FILTRATION RATE 30.3 (>60); MAGNESIUM LEVEL 1.3 MG/DL (1.8-2.4); POTASSIUM SERUM 3.5 MMOL/L (3.5-5.1); TOTAL PROTEIN 5.9 G/DL (5.7-8.2)
[2024-06-05] MEDS: INSULIN LISPRO (NovoLOG) PER UNIT SC SCH ×4 (06:15→21:59)
[2024-06-05 06:27] LABS: AMPHETAMINES LEVEL URINE NEGATIVE (NEGATIVE); BARBITURATES URINE NEGATIVE (NEGATIVE); BENZODIAZEPINES URINE NEGATIVE (NEGATIVE)
[2024-06-05 06:28] LABS: CANNABINOIDS URINE NEGATIVE (NEGATIVE); COCAINE METABOLITE URINE NEGATIVE (NEGATIVE); METHADONE URINE NEGATIVE (NEGATIVE); OPIATES URINE NEGATIVE (NEGATIVE); PHENCYCLIDINE URINE NEGATIVE (NEGATIVE)
[2024-06-05 07:01] LABS: VENOUS BASE EXCESS -7.3 (-2.0-2.0); VENOUS HCO3 17.9 MMOL/L (23.0-27.0); VENOUS O2 SATURATION 98.6 % (60.0-80.0); VENOUS PARTIAL PRESSURE CO2 35.4 mmHg (38.0-50.0); VENOUS PARTIAL PRESSURE O2 200.8 mmHg (30.0-50.0); VENOUS PH 7.321 UNITS (7.330-7.430); VENOUS STANDARD HCO3 18.7 MMOL/L
[2024-06-05] MEDS: HEPARIN SOD (PORCINE) 5000UNITS/ML 1ML VIAL/SYRINGE SC SCH (09:51)
[2024-06-05] MEDS: MAG SULF 1GM/100ML (MAG RUN) 1 GM in IV 1 EA IV ONE (09:52)
[2024-06-05] MEDS: LEVEMIR (INSULIN DETEMIR) 1 UNITS/0.01ML SC SCH ×2 (09:52→21:49)
[2024-06-05] MEDS: ONDANSETRON 4MG 2ML VIAL IV PRN (11:48)
[2024-06-05] MEDS: PIPERACILLIN/TAZOBACTAM SOD 4.5 GM in D5W MINI-BAG PLUS 50 ML IV SCH (11:49)
[2024-06-05 12:07] LABS: KETONE, URINE AUTO 1+ mg/dL (NEGATIVE)
[2024-06-05] MEDS: VANCOMYCIN HCL 1,000 MG, VIAL MATE ADAPTER 1 EACH in D5W 250 ML IV SCH (14:11)
[2024-06-05] MEDS ORDERED: DULO1CAP6 PO (15:07)
[2024-06-05] MEDS ORDERED: ONDA-284 PO (15:07)
[2024-06-05] MEDS ORDERED: ROSU10TA61 PO (15:09)
[2024-06-05] MEDS ORDERED: SEMA0.257 INJ (15:09)
[2024-06-05] MEDS ORDERED: HOME MED LIST COMPLETE! XX SCH ×2 (15:15→18:00)
[2024-06-05] MEDS: oxyCODONE 5MG TAB PO PRN (16:38)
[2024-06-05] MEDS ORDERED: ERGO500029 PO (17:43)
[2024-06-05] MEDS ORDERED: DIME240C PO (17:43)
[2024-06-05] MEDS ORDERED: MECL-86 PO (17:44)
[2024-06-05] MEDS ORDERED: COMPTAB7 PO (17:51)
[2024-06-05] MEDS ORDERED: [UNRECOGNIZED DRUG - OTHER] (17:51)
[2024-06-05] MEDS ORDERED: CENT1TAB PO (17:54)
[2024-06-05] MEDS ORDERED: [UNRECOGNIZED DRUG - OTHER] PO (17:55)
[2024-06-05] MEDS ORDERED: [UNRECOGNIZED DRUG - OTHER] PO (17:57)
[2024-06-05] MEDS ORDERED: APPLCAP PO (17:59)
[2024-06-05] MEDS ORDERED: CVS1CHW13 PO (17:59)
[2024-06-06 00:32] VITALS: BP 119/58; TEMP 97.7
[2024-06-06 04:00] VITALS: BP 141/75; TEMP 99.4; O2SAT 95
[2024-06-06] MEDS: HYDROMORPHONE HCL 0.5 MG/ 0.5 ML SYRINGE IV STA (05:45)
[2024-06-06 06:03] LABS: BASO # 0.1 10^3/uL (0.0-0.2); BASO % 0.3 % (0.0-1.0); EOS # 0.1 10^3/uL (0.0-0.5); EOS % 0.3 % (0.0-3.0); HEMATOCRIT 43.1 % (42.0-52.0); HEMOGLOBIN 14.3 g/dl (13.5-17.5); LYMPH # 0.7 10^3/uL (1.5-5.0); LYMPH % 4.7 % (24.0-44.0); MEAN CORPUSCULAR HEMOGLOBIN 24.7 pg (27.0-33.0); MEAN CORPUSCULAR HGB CONC 33.2 g/dl (32.0-36.5); MEAN CORPUSCULAR VOLUME 74.3 fl (80.0-96.0); MONO % 6.6 % (2.0-8.0); NEUTROPHILS # 13.1 10^3/uL (1.5-8.5); NEUTROPHILS % 86.5 % (36.0-66.0); PLATELET COUNT, AUTOMATED 107 10^3/uL (150-450); WHITE BLOOD COUNT 15.2 10^3/uL (4.0-10.0)
[2024-06-06] MEDS: clonazePAM 1 MG TAB PO PRN (06:26)
[2024-06-06 06:37] LABS: ALBUMIN 2.8 G/DL (3.2-5.2); CALCIUM LEVEL 8.7 MG/DL (8.5-10.1); CREATININE FOR GFR 1.64 MG/DL (0.70-1.30); MAGNESIUM LEVEL 1.5 MG/DL (1.8-2.4); POTASSIUM SERUM 4.6 MMOL/L (3.5-5.1); TOTAL PROTEIN 6.1 G/DL (5.7-8.2)
[2024-06-06 08:25] VITALS: BP 129/72; O2SAT 93
[2024-06-06] MEDS: FLUTICASONE PROP 0.05% NASAL SPRAY 16 GM (FLONASE) SCH (08:40)
[2024-06-06] MEDS: DULoxetine 30MG CAPSULE (CYMBALTA) PO SCH (08:40)
[2024-06-06] MEDS: INSULIN LISPRO (NovoLOG) PER UNIT SC SCH (08:42)
[2024-06-06 08:53] VITALS: TEMP 97.3
[2024-06-06 16:27] VITALS: BP 118/56; TEMP 97.2; O2SAT 94
[2024-06-06 20:00] VITALS: BP 133/69; TEMP 97.5; O2SAT 95
[2024-06-07] MEDS: VANCOMYCIN HCL 1,000 MG, VIAL MATE ADAPTER 1 EACH in D5W 250 ML IV SCH (00:24)
[2024-06-07 03:57] VITALS: BP 136/77; TEMP 97.6; O2SAT 95
[2024-06-07 04:00] VITALS: BP 136/77; TEMP 97.6; O2SAT 95
[2024-06-07 05:52] LABS: BASO # 0.1 10^3/uL (0.0-0.2); BASO % 0.4 % (0.0-1.0); EOS # 0.3 10^3/uL (0.0-0.5); EOS % 2.6 % (0.0-3.0); HEMATOCRIT 44.3 % (42.0-52.0); HEMOGLOBIN 14.4 g/dl (13.5-17.5); LYMPH % 8.2 % (24.0-44.0); MEAN CORPUSCULAR HEMOGLOBIN 24.3 pg (27.0-33.0); MEAN CORPUSCULAR HGB CONC 32.5 g/dl (32.0-36.5); MEAN CORPUSCULAR VOLUME 74.8 fl (80.0-96.0); MONO # 0.8 10^3/uL (0.0-0.8); MONO % 6.3 % (2.0-8.0); NEUTROPHILS % 81.8 % (36.0-66.0); PLATELET COUNT, AUTOMATED 113 10^3/uL (150-450); RED BLOOD COUNT 5.92 10^6/uL (4.30-6.10); WHITE BLOOD COUNT 12.2 10^3/uL (4.0-10.0)
[2024-06-07 06:10] LABS: ALBUMIN 2.4 G/DL (3.2-5.2); ALKALINE PHOSPHATASE 156 U/L (46-116); ALT/SGPT 79 U/L (7.0-40); AST/SGOT 51 U/L (<34); BILIRUBIN,TOTAL 0.8 MG/DL (0.3-1.2); BLOOD UREA NITROGEN 16 MG/DL (9-23); CALCIUM LEVEL 8.9 MG/DL (8.5-10.1); CARBON DIOXIDE LEVEL 24 MMOL/L (20-31); CHLORIDE LEVEL 104 MMOL/L (98-107); CREATININE FOR GFR 0.94 MG/DL (0.70-1.30); GLOMERULAR FILTRATION RATE > 60.0 (>60); GLUCOSE, FASTING 266 MG/DL (60-100); MAGNESIUM LEVEL 1.4 MG/DL (1.8-2.4); SODIUM LEVEL 135 MMOL/L (136-145); TOTAL PROTEIN 5.9 G/DL (5.7-8.2)
[2024-06-07 07:58] LABS: VANCOMYCIN RANDOM 19.5 UG/ML
[2024-06-07 08:19] VITALS: BP 137/78; TEMP 97.7; O2SAT 95
[2024-06-07] MEDS: MAG SULF 1GM/100ML (MAG RUN) 1 GM in IV 1 EA IV ONE (08:40)
[2024-06-07] MEDS: VANCOMYCIN HCL 750 MG, VIAL MATE ADAPTER 1 EACH in D5W 250 ML IV SCH ×2 (12:58→14:22)
[2024-06-07 13:19] LABS: PROCALCITONIN 25.72 ng/ml
[2024-06-07 16:21] VITALS: BP 148/81; TEMP 97.1; O2SAT 95
[2024-06-07 19:41] VITALS: BP 150/78; TEMP 97.5; O2SAT 96
[2024-06-07] MEDS: GABAPENTIN 300 MG CAP PO SCH (20:45)
[2024-06-08 04:39] VITALS: BP 148/41; TEMP 97.4; O2SAT 95
[2024-06-08 06:20] LABS: BASO % 0.4 % (0.0-1.0); EOS # 0.3 10^3/uL (0.0-0.5); HEMATOCRIT 40.6 % (42.0-52.0); HEMOGLOBIN 13.4 g/dl (13.5-17.5); LYMPH # 1.3 10^3/uL (1.5-5.0); LYMPH % 14.1 % (24.0-44.0); MEAN CORPUSCULAR HEMOGLOBIN 24.5 pg (27.0-33.0); MEAN CORPUSCULAR VOLUME 74.2 fl (80.0-96.0); MONO # 0.9 10^3/uL (0.0-0.8); MONO % 9.2 % (2.0-8.0); NEUTROPHILS # 6.7 10^3/uL (1.5-8.5); PLATELET COUNT, AUTOMATED 121 10^3/uL (150-450); RED BLOOD COUNT 5.47 10^6/uL (4.30-6.10); WHITE BLOOD COUNT 9.5 10^3/uL (4.0-10.0)
[2024-06-08 06:34] LABS: HEMOGLOBIN A1c 9.9 % (4.0-6.0)
[2024-06-08 07:21] LABS: ALBUMIN 2.4 G/DL (3.2-5.2); ALKALINE PHOSPHATASE 188 U/L (46-116); ALT/SGPT 54 U/L (7.0-40); AST/SGOT 30 U/L (<34); BILIRUBIN,TOTAL 0.7 MG/DL (0.3-1.2); BLOOD UREA NITROGEN 13 MG/DL (9-23); CALCIUM LEVEL 9.2 MG/DL (8.5-10.1); CARBON DIOXIDE LEVEL 24 MMOL/L (20-31); CHLORIDE LEVEL 104 MMOL/L (98-107); CREATININE FOR GFR 0.94 MG/DL (0.70-1.30); GLOMERULAR FILTRATION RATE > 60.0 (>60); GLUCOSE, FASTING 317 MG/DL (60-100); MAGNESIUM LEVEL 1.6 MG/DL (1.8-2.4); POTASSIUM SERUM 3.7 MMOL/L (3.5-5.1); SODIUM LEVEL 137 MMOL/L (136-145); TOTAL PROTEIN 5.7 G/DL (5.7-8.2)
[2024-06-08 08:00] VITALS: BP 136/64; TEMP 97.4; O2SAT 96
[2024-06-08] MEDS: LEVEMIR (INSULIN DETEMIR) 1 UNITS/0.01ML SC SCH (09:36)
[2024-06-08] MEDS: CEFDINIR 300 MG CAP (OMNICEF) PO SCH (09:38)
[2024-06-08] MEDS: INSULIN LISPRO (NovoLOG) PER UNIT SC SCH (09:38)
[2024-06-08] MEDS: MAGNESIUM OXIDE 400MG TAB (MAG-OX) PO SCH (09:44)
[2024-06-08] MEDS: MAG SULF 1GM/100ML (MAG RUN) 1 GM in IV 1 EA IV SCH (09:44)
[2024-06-08] MEDS ORDERED: MECLIZINE 25 MG TABLET PO PRN (10:05)
[2024-06-08] MEDS: PERCOCET 5MG/325MG TAB PO PRN (11:31)
[2024-06-08 16:00] VITALS: BP 126/56; TEMP 97.6; O2SAT 94
[2024-06-08] MEDS: hydrOXYzine 50 MG TAB PO SCH (20:10)
[2024-06-08] MEDS: FUROSEMIDE 40MG/4ML VIAL IV SCH (20:11)
[2024-06-08 20:14] VITALS: BP 129/59; TEMP 97.1; O2SAT 97
[2024-06-09 05:44] VITALS: BP 145/88; TEMP 97.5; O2SAT 95
[2024-06-09] MEDS ORDERED: LevoFLOXacin 500 MG TABLET PO SCH (06:00)
[2024-06-09 06:28] LABS: HEMATOCRIT 44.7 % (42.0-52.0); HEMOGLOBIN 14.2 g/dl (13.5-17.5); MEAN CORPUSCULAR HEMOGLOBIN 23.8 pg (27.0-33.0); MEAN CORPUSCULAR HGB CONC 31.8 g/dl (32.0-36.5); MEAN CORPUSCULAR VOLUME 74.9 fl (80.0-96.0); PLATELET COUNT, AUTOMATED 158 10^3/uL (150-450); RED BLOOD COUNT 5.97 10^6/uL (4.30-6.10); WHITE BLOOD COUNT 10.4 10^3/uL (4.0-10.0)
[2024-06-09 06:56] LABS: ALBUMIN 2.9 G/DL (3.2-5.2); ALKALINE PHOSPHATASE 243 U/L (46-116); ALT/SGPT 54 U/L (7.0-40); AST/SGOT 29 U/L (<34); BILIRUBIN,TOTAL 0.5 MG/DL (0.3-1.2); BLOOD UREA NITROGEN 13 MG/DL (9-23); CALCIUM LEVEL 10.2 MG/DL (8.5-10.1); CARBON DIOXIDE LEVEL 26 MMOL/L (20-31); CHLORIDE LEVEL 102 MMOL/L (98-107); CREATININE FOR GFR 1.05 MG/DL (0.70-1.30); GLOMERULAR FILTRATION RATE > 60.0 (>60); GLUCOSE, FASTING 363 MG/DL (60-100); MAGNESIUM LEVEL 1.7 MG/DL (1.8-2.4); POTASSIUM SERUM 3.6 MMOL/L (3.5-5.1); SODIUM LEVEL 137 MMOL/L (136-145); TOTAL PROTEIN 6.7 G/DL (5.7-8.2)
[2024-06-09 07:07] LABS: ATYPICAL LYMPH 8 % (0-5); EOSINOPHILS 5 % (0-3); LYMPHOCYTES 8 % (16-44); MONOCYTES 17 % (0-5); MYELOCYTES 2 % (0-0); NEUTROPHILS 56 % (28-66)
[2024-06-09 07:08] LABS: PLATELET ESTIMATE NORMAL (NORMAL); SPHEROCYTES 2+
[2024-06-09 07:50] VITALS: BP 128/68; TEMP 97.4; O2SAT 94
[2024-06-09] MEDS: MAG SULF 1GM/100ML (MAG RUN) 1 GM in IV 1 EA IV SCH (08:20)
[2024-06-09] MEDS: FUROSEMIDE 20MG/2ML VIAL IV SCH (08:21)
[2024-06-09] MEDS: INSULIN LISPRO (NovoLOG) PER UNIT SC SCH ×2 (08:21→21:47)
[2024-06-09] MEDS: MAGNESIUM OXIDE 400MG TAB (MAG-OX) PO SCH (08:22)
[2024-06-09] MEDS: METOPROLOL TART 25 MG TABLET PO SCH (08:22)
[2024-06-09 09:13] LABS: CALCIUM LEVEL 9.6 MG/DL (8.5-10.1)
[2024-06-09 09:14] LABS: PTH INTACT 65.2 PG/ML (18.5-88.0)
[2024-06-09 09:18] LABS: THYROID STIMULATING HORMONE 2.925 uIU/ML (0.55-4.78)
[2024-06-09 14:10] VITALS: BP 154/94; TEMP 98.1; O2SAT 95
[2024-06-09 21:20] VITALS: BP 127/91; TEMP 97.7; O2SAT 98
[2024-06-10 04:00] VITALS: BP 153/56; TEMP 97.5; O2SAT 97
[2024-06-10 06:12] LABS: BASO # 0.1 10^3/uL (0.0-0.2); BASO % 0.7 % (0.0-1.0); EOS # 0.6 10^3/uL (0.0-0.5); EOS % 6.8 % (0.0-3.0); HEMATOCRIT 39.6 % (42.0-52.0); LYMPH # 1.6 10^3/uL (1.5-5.0); LYMPH % 18.6 % (24.0-44.0); MEAN CORPUSCULAR HEMOGLOBIN 24.6 pg (27.0-33.0); MEAN CORPUSCULAR HGB CONC 32.8 g/dl (32.0-36.5); MONO # 1.1 10^3/uL (0.0-0.8); MONO % 12.6 % (2.0-8.0); NEUTROPHILS # 4.3 10^3/uL (1.5-8.5); NEUTROPHILS % 50.7 % (36.0-66.0); PLATELET COUNT, AUTOMATED 186 10^3/uL (150-450); RED BLOOD COUNT 5.28 10^6/uL (4.30-6.10); WHITE BLOOD COUNT 8.6 10^3/uL (4.0-10.0)
[2024-06-10 06:30] LABS: ALBUMIN 2.5 G/DL (3.2-5.2); ALKALINE PHOSPHATASE 196 U/L (46-116); ALT/SGPT 42 U/L (7.0-40); AST/SGOT 27 U/L (<34); BILIRUBIN,TOTAL 0.4 MG/DL (0.3-1.2); BLOOD UREA NITROGEN 14 MG/DL (9-23); CALCIUM LEVEL 9.4 MG/DL (8.5-10.1); CARBON DIOXIDE LEVEL 31 MMOL/L (20-31); CHLORIDE LEVEL 103 MMOL/L (98-107); CREATININE FOR GFR 1.01 MG/DL (0.70-1.30); GLOMERULAR FILTRATION RATE > 60.0 (>60); GLUCOSE, FASTING 266 MG/DL (60-100); MAGNESIUM LEVEL 1.8 MG/DL (1.8-2.4); POTASSIUM SERUM 3.8 MMOL/L (3.5-5.1); SODIUM LEVEL 138 MMOL/L (136-145); TOTAL PROTEIN 5.9 G/DL (5.7-8.2)
[2024-06-10] MEDS: FUROSEMIDE 20MG/2ML VIAL IV SCH (08:23)
[2024-06-10] MEDS: INSULIN LISPRO (NovoLOG) PER UNIT SC SCH ×2 (08:24→08:25)
[2024-06-10 12:00] VITALS: BP 120/100; TEMP 97.5; O2SAT 95
[2024-06-10 20:47] VITALS: BP 127/104; TEMP 97.9; O2SAT 95
[2024-06-11 05:45] VITALS: BP 147/103; TEMP 97.5; O2SAT 94
[2024-06-11 06:26] LABS: BASO # 0.1 10^3/uL (0.0-0.2); BASO % 0.8 % (0.0-1.0); EOS # 0.6 10^3/uL (0.0-0.5); EOS % 7.6 % (0.0-3.0); LYMPH # 1.6 10^3/uL (1.5-5.0); LYMPH % 21.6 % (24.0-44.0); MEAN CORPUSCULAR HEMOGLOBIN 23.9 pg (27.0-33.0); MEAN CORPUSCULAR HGB CONC 31.8 g/dl (32.0-36.5); MEAN CORPUSCULAR VOLUME 75.2 fl (80.0-96.0); MONO # 0.8 10^3/uL (0.0-0.8); MONO % 11.1 % (2.0-8.0); NEUTROPHILS # 3.7 10^3/uL (1.5-8.5); NEUTROPHILS % 49.3 % (36.0-66.0); PLATELET COUNT, AUTOMATED 296 10^3/uL (150-450); RED BLOOD COUNT 5.85 10^6/uL (4.30-6.10); WHITE BLOOD COUNT 7.4 10^3/uL (4.0-10.0)
[2024-06-11 06:55] LABS: ALKALINE PHOSPHATASE 204 U/L (46-116); ALT/SGPT 44 U/L (7.0-40); AST/SGOT 31 U/L (<34); BILIRUBIN,TOTAL 0.6 MG/DL (0.3-1.2); BLOOD UREA NITROGEN 16 MG/DL (9-23); CALCIUM LEVEL 9.8 MG/DL (8.5-10.1); CARBON DIOXIDE LEVEL 29 MMOL/L (20-31); CHLORIDE LEVEL 102 MMOL/L (98-107); CREATININE FOR GFR 0.96 MG/DL (0.70-1.30); GLOMERULAR FILTRATION RATE > 60.0 (>60); GLUCOSE, FASTING 218 MG/DL (60-100); MAGNESIUM LEVEL 1.8 MG/DL (1.8-2.4); POTASSIUM SERUM 3.9 MMOL/L (3.5-5.1); SODIUM LEVEL 137 MMOL/L (136-145)
[2024-06-11 12:00] VITALS: BP 152/88; TEMP 97.9; O2SAT 97
[2024-06-11] MEDS: INSULIN LISPRO (NovoLOG) PER UNIT SC SCH (18:41)
[2024-06-11 21:14] VITALS: O2SAT 94
[2024-06-12 04:42] VITALS: BP 160/92; TEMP 97.3; O2SAT 94
[2024-06-12 07:06] LABS: HEMATOCRIT 41.4 % (42.0-52.0); HEMOGLOBIN 13.5 g/dl (13.5-17.5); MEAN CORPUSCULAR HEMOGLOBIN 24.7 pg (27.0-33.0); MEAN CORPUSCULAR HGB CONC 32.6 g/dl (32.0-36.5); MEAN CORPUSCULAR VOLUME 75.7 fl (80.0-96.0); PLATELET COUNT, AUTOMATED 314 10^3/uL (150-450); RED BLOOD COUNT 5.47 10^6/uL (4.30-6.10); WHITE BLOOD COUNT 7.6 10^3/uL (4.0-10.0)
[2024-06-12 07:32] LABS: ATYPICAL LYMPH 2 % (0-5); BASOPHILS 1 % (0-1); EOSINOPHILS 7 % (0-3); LYMPHOCYTES 14 % (16-44); METAMYELOCYTES 2 % (0-0); MONOCYTES 12 % (0-5); MYELOCYTES 1 % (0-0); NEUTROPHILS 58 % (28-66)
[2024-06-12 07:33] LABS: MICROCYTOSIS 2+; PLATELET CLUMPS SMALL AMT; PLATELET ESTIMATE NORMAL (NORMAL)
[2024-06-12 07:34] LABS: POLYCHROMASIA 1+
[2024-06-12 07:52] LABS: ALBUMIN 2.8 G/DL (3.2-5.2); ALKALINE PHOSPHATASE 168 U/L (46-116); ALT/SGPT 40 U/L (7.0-40); AST/SGOT 38 U/L (<34); BILIRUBIN,TOTAL 0.4 MG/DL (0.3-1.2); BLOOD UREA NITROGEN 21 MG/DL (9-23); CALCIUM LEVEL 9.8 MG/DL (8.5-10.1); CARBON DIOXIDE LEVEL 30 MMOL/L (20-31); CHLORIDE LEVEL 102 MMOL/L (98-107); CREATININE FOR GFR 0.99 MG/DL (0.70-1.30); GLOMERULAR FILTRATION RATE > 60.0 (>60); GLUCOSE, FASTING 233 MG/DL (60-100); MAGNESIUM LEVEL 1.8 MG/DL (1.8-2.4); POTASSIUM SERUM 4.3 MMOL/L (3.5-5.1); SODIUM LEVEL 136 MMOL/L (136-145); TOTAL PROTEIN 6.6 G/DL (5.7-8.2)
[2024-06-12] MEDS: TAMSULOSIN 0.4 MG CAP PO SCH (08:48)
[2024-06-12] MEDS: metOLazone 5 MG TAB PO SCH (08:48)
[2024-06-12 12:00] VITALS: BP 126/73; TEMP 97.7; O2SAT 96
[2024-06-12 20:26] VITALS: BP 141/80; TEMP 97.7; O2SAT 95
[2024-06-12] MEDS: ACETAMINOPHEN TAB 650MG DOSE (2X325MG) PO PRN (21:43)
[2024-06-12] MEDS: LIDOCAINE 5% (LIDODERM) PATCH TD SCH (22:00)
[2024-06-13 04:02] VITALS: BP 136/85; TEMP 97.9; O2SAT 96
[2024-06-13 07:19] LABS: HEMATOCRIT 42.7 % (42.0-52.0); HEMOGLOBIN 13.7 g/dl (13.5-17.5); MEAN CORPUSCULAR HEMOGLOBIN 24.2 pg (27.0-33.0); MEAN CORPUSCULAR HGB CONC 32.1 g/dl (32.0-36.5); MEAN CORPUSCULAR VOLUME 75.6 fl (80.0-96.0); PLATELET COUNT, AUTOMATED 392 10^3/uL (150-450); RED BLOOD COUNT 5.65 10^6/uL (4.30-6.10); WHITE BLOOD COUNT 7.6 10^3/uL (4.0-10.0)
[2024-06-13 07:48] LABS: ALBUMIN 3.2 G/DL (3.2-5.2); ALKALINE PHOSPHATASE 160 U/L (46-116); ALT/SGPT 40 U/L (7.0-40); AST/SGOT 21 U/L (<34); BILIRUBIN,TOTAL 0.5 MG/DL (0.3-1.2); BLOOD UREA NITROGEN 19 MG/DL (9-23); CALCIUM LEVEL 9.8 MG/DL (8.5-10.1); CARBON DIOXIDE LEVEL 30 MMOL/L (20-31); CHLORIDE LEVEL 99 MMOL/L (98-107); CREATININE FOR GFR 1.09 MG/DL (0.70-1.30); GLOMERULAR FILTRATION RATE > 60.0 (>60); GLUCOSE, FASTING 310 MG/DL (60-100); SODIUM LEVEL 133 MMOL/L (136-145)
[2024-06-13] MEDS: INSULIN LISPRO (NovoLOG) PER UNIT SC SCH (08:02)
[2024-06-13 12:33] VITALS: BP 139/73; TEMP 97.9; O2SAT 96
[2024-06-13 20:21] VITALS: BP 139/91; TEMP 97.5; O2SAT 89
[2024-06-14 04:28] VITALS: BP 144/83; TEMP 97.5; O2SAT 93
[2024-06-14 07:40] LABS: BASO % 0.5 % (0.0-1.0); EOS # 0.3 10^3/uL (0.0-0.5); EOS % 3.2 % (0.0-3.0); HEMATOCRIT 44.9 % (42.0-52.0); HEMOGLOBIN 14.2 g/dl (13.5-17.5); LYMPH # 1.4 10^3/uL (1.5-5.0); LYMPH % 15.6 % (24.0-44.0); MEAN CORPUSCULAR HGB CONC 31.6 g/dl (32.0-36.5); MEAN CORPUSCULAR VOLUME 75.8 fl (80.0-96.0); MONO # 0.7 10^3/uL (0.0-0.8); MONO % 8.2 % (2.0-8.0); NEUTROPHILS # 6.3 10^3/uL (1.5-8.5); NEUTROPHILS % 71.5 % (36.0-66.0); PLATELET COUNT, AUTOMATED 419 10^3/uL (150-450); RED BLOOD COUNT 5.92 10^6/uL (4.30-6.10); WHITE BLOOD COUNT 8.8 10^3/uL (4.0-10.0)
[2024-06-14 08:08] LABS: ALBUMIN 3.2 G/DL (3.2-5.2); ALKALINE PHOSPHATASE 146 U/L (46-116); ALT/SGPT 35 U/L (7.0-40); AST/SGOT 19 U/L (<34); BILIRUBIN,TOTAL 0.7 MG/DL (0.3-1.2); BLOOD UREA NITROGEN 17 MG/DL (9-23); CALCIUM LEVEL 10.4 MG/DL (8.5-10.1); CARBON DIOXIDE LEVEL 30 MMOL/L (20-31); CHLORIDE LEVEL 103 MMOL/L (98-107); CREATININE FOR GFR 0.89 MG/DL (0.70-1.30); GLOMERULAR FILTRATION RATE > 60.0 (>60); GLUCOSE, FASTING 271 MG/DL (60-100); MAGNESIUM LEVEL 2.1 MG/DL (1.8-2.4); POTASSIUM SERUM 4.2 MMOL/L (3.5-5.1); SODIUM LEVEL 135 MMOL/L (136-145)
[2024-06-14] MEDS: **UNRESOLVED NON-FORMULARY MED ORDER XX SCH (09:00)
[2024-06-14] MEDS ORDERED: DIMETHYL FUMARATE PO SCH (09:00)
[2024-06-14] MEDS: FUROSEMIDE 40MG/4ML VIAL IV ONE (10:12)
[2024-06-14 12:00] VITALS: BP 137/80; TEMP 97.7; O2SAT 97
[2024-06-14] MEDS: INSULIN LISPRO (NovoLOG) PER UNIT SC SCH (12:48)
[2024-06-14 20:42] VITALS: BP 153/81; TEMP 97.3; O2SAT 95
[2024-06-15 04:10] VITALS: BP 162/89; TEMP 97.7; O2SAT 95
[2024-06-15 06:10] LABS: BASO % 0.3 % (0.0-1.0); EOS # 0.3 10^3/uL (0.0-0.5); EOS % 3.1 % (0.0-3.0); HEMATOCRIT 43.3 % (42.0-52.0); HEMOGLOBIN 13.7 g/dl (13.5-17.5); LYMPH # 1.3 10^3/uL (1.5-5.0); LYMPH % 13.9 % (24.0-44.0); MEAN CORPUSCULAR HEMOGLOBIN 24.4 pg (27.0-33.0); MEAN CORPUSCULAR HGB CONC 31.6 g/dl (32.0-36.5); MONO # 0.8 10^3/uL (0.0-0.8); NEUTROPHILS # 6.7 10^3/uL (1.5-8.5); NEUTROPHILS % 72.9 % (36.0-66.0); PLATELET COUNT, AUTOMATED 407 10^3/uL (150-450); RED BLOOD COUNT 5.62 10^6/uL (4.30-6.10); WHITE BLOOD COUNT 9.1 10^3/uL (4.0-10.0)
[2024-06-15 06:30] LABS: ALBUMIN 3.3 G/DL (3.2-5.2); ALKALINE PHOSPHATASE 131 U/L (46-116); ALT/SGPT 30 U/L (7.0-40); AST/SGOT 14 U/L (<34); BILIRUBIN,TOTAL 0.6 MG/DL (0.3-1.2); BLOOD UREA NITROGEN 23 MG/DL (9-23); CALCIUM LEVEL 10.2 MG/DL (8.5-10.1); CARBON DIOXIDE LEVEL 32 MMOL/L (20-31); CHLORIDE LEVEL 98 MMOL/L (98-107); CREATININE FOR GFR 1.07 MG/DL (0.70-1.30); GLOMERULAR FILTRATION RATE > 60.0 (>60); GLUCOSE, FASTING 329 MG/DL (60-100); POTASSIUM SERUM 4.3 MMOL/L (3.5-5.1); SODIUM LEVEL 136 MMOL/L (136-145); TOTAL PROTEIN 7.1 G/DL (5.7-8.2)
[2024-06-15 08:39] VITALS: BP 128/70
[2024-06-15] MEDS ORDERED: MAGN400T2 PO (09:56)
[2024-06-15] MEDS ORDERED: GABA-282 PO (09:56)
[2024-06-15] MEDS ORDERED: FLOM0.4C39 PO (09:56)
[2024-06-15] MEDS ORDERED: METO1TAB87 PO (09:56)
[2024-06-15] MEDS ORDERED: HUMU500S2 SC (09:56)
== END 2024-06-15 12:25 | disposition home health service (06) | DRG 871 ==
LOC: M ED 21:36 → M ED INP 06-05 02:18 → EEVIPCON 06-05 02:18 → M PCU 06-05 03:44 → M MS5PR 06-09 13:47
PROVIDERS: ADMIT Preventive Medicine Undersea and Hyperbaric Medicine; ATTEND Internal Medicine
DX: A41.9 Sepsis, unspecified organism (principal); G93.41 Metabolic encephalopathy; J96.01 Acute respiratory failure with hypoxia; Z68.43 Body mass index [BMI] 50.0-59.9, adult; N17.9 Acute kidney failure, unspecified; N39.0 Urinary tract infection, site not specified; L97.219 Non-pressure chronic ulcer of right calf with unspecified severity; L97.229 Non-pressure chronic ulcer of left calf with unspecified severity; E11.40 Type 2 diabetes mellitus with diabetic neuropathy, unspecified; E66.01 Morbid (severe) obesity due to excess calories; G35 Multiple sclerosis; E78.5 Hyperlipidemia, unspecified; K21.9 Gastro-esophageal reflux disease without esophagitis; E83.42 Hypomagnesemia; B96.20 Unspecified Escherichia coli [E. coli] as the cause of diseases classified elsewhere; F41.9 Anxiety disorder, unspecified; F32.A Depression, unspecified; K76.0 Fatty (change of) liver, not elsewhere classified; G47.33 Obstructive sleep apnea (adult) (pediatric); E83.52 Hypercalcemia; R19.7 Diarrhea, unspecified; E11.65 Type 2 diabetes mellitus with hyperglycemia; Z91.119 Patient's noncompliance with dietary regimen due to unspecified reason; I87.2 Venous insufficiency (chronic) (peripheral); L40.50 Arthropathic psoriasis, unspecified; M54.59 Other low back pain; N40.0 Benign prostatic hyperplasia without lower urinary tract symptoms; Z88.8 Allergy status to other drugs, medicaments and biological substances; Z79.899 Other long term (current) drug therapy; Z79.4 Long term (current) use of insulin; Z66 Do not resuscitate; E83.19 Other disorders of iron metabolism

== ENCOUNTER → 2024-11-23 | Outpatient (CLI) | payer MEDICARE ==
[~2024-11-23] MED LIST changes: +APPLCAP PO; +CENT1TAB PO; +COMPTAB7 PO; +CVS1CHW13 PO; +DIME240C PO; +DULO1CAP6 PO; +ERGO500029 PO; +FLOM0.4C39 PO; +GABA-1172 PO; -GABA-282 PO; +MAGN400T2 PO; +MECL-86 PO; +METO1TAB87 PO; +ONDA-284 PO; +ROSU10TA61 PO; +SEMA0.257 INJ; +[UNRECOGNIZED DRUG - OTHER]; +[UNRECOGNIZED DRUG - OTHER] PO; +[UNRECOGNIZED DRUG - OTHER] PO
[2024-11-23 18:15] LABS: BASO # 0.1 10^3/uL (0.0-0.2); BASO % 0.5 % (0.0-1.0); EOS # 0.2 10^3/uL (0.0-0.5); HEMATOCRIT 49.4 % (42.0-52.0); HEMOGLOBIN 15.8 g/dl (13.5-17.5); LYMPH # 1.2 10^3/uL (1.5-5.0); MEAN CORPUSCULAR HEMOGLOBIN 24.7 pg (27.0-33.0); MEAN CORPUSCULAR VOLUME 77.2 fl (80.0-96.0); MONO # 0.8 10^3/uL (0.0-0.8); MONO % 7.7 % (2.0-8.0); NEUTROPHILS # 7.6 10^3/uL (1.5-8.5); NEUTROPHILS % 77.4 % (36.0-66.0); PLATELET COUNT, AUTOMATED 223 10^3/uL (150-450); WHITE BLOOD COUNT 9.9 10^3/uL (4.0-10.0)
[2024-11-23 18:27] LABS: HEMOGLOBIN A1c 7.9 % (4.0-6.0)
== END ==
LOC: M PLALAB 15:45
PROVIDERS: ATTEND Student in an Organized Health Care Education/Training Program
DX: Z00.00 Encounter for general adult medical examination without abnormal findings (principal); D50.9 Iron deficiency anemia, unspecified; E55.9 Vitamin D deficiency, unspecified; E11.9 Type 2 diabetes mellitus without complications

== ENCOUNTER → 2024-11-23 | Outpatient (REF) | payer MEDICARE | LOC: M SFHCPLAZ 15:11 | PROVIDERS: ATTEND Student in an Organized Health Care Education/Training Program | DX: Z53.21 Procedure and treatment not carried out due to patient leaving prior to being seen by health care provider (principal) ==

== ENCOUNTER → 2025-04-26 | Outpatient (REF) | payer MEDICARE, MEDICAID ==
[~2025-04-26] MED LIST changes: +BD P32MI SC; +CEFD300CAP PO; -FLOM0.4C39 PO; -FLON1SPR; +FLON1SPR NARES; +LANTINJ4 SC; +LOPR1TAB6 PO; +MIRA33506 PO; +NYST10006 TOP; +SENN18TA PO; +TAMS-18 PO; +TAMS1CAP17 PO
[2025-04-26 18:12] LABS: APPEARANCE, URINE HAZY (CLEAR); BACTERIA, URINE AUTO NEGATIVE (NEGATIVE); BILIRUBIN, URINE AUTO NEGATIVE (NEGATIVE); BLOOD, URINE BLOOD NEGATIVE (NEGATIVE); GLUCOSE, URINE (UA) AUTO 2+ mg/dL (NEGATIVE); KETONE, URINE AUTO NEGATIVE (NEGATIVE); LEUKOCYTE ESTERASE, URINE AUTO NEGATIVE (NEGATIVE); NITRITE, URINE AUTO NEGATIVE (NEGATIVE); PROTEIN, URINE AUTO NEGATIVE (NEGATIVE); RBC, URINE AUTO 0 /HPF (0-3); SPECIFIC GRAVITY URINE AUTO 1.023 (1.002-1.035); SQUAMOUS EPITHELIAL CELL UR AU 3 /HPF (0-6); UROBILINOGEN, URINE AUTO 0.2 mg/dL (0.0-2.0); WBC, URINE AUTO 7 /HPF (0-3); YEAST LIKE CELL URINE AUTO SMALL
== END ==
LOC: M SFHCPLAZ 15:17
PROVIDERS: ATTEND Student in an Organized Health Care Education/Training Program
DX: N39.0 Urinary tract infection, site not specified (principal)

== ENCOUNTER → 2025-10-07 | Outpatient (CLI) | payer MEDICARE, MEDICAID ==
[~2025-10-07] MED LIST changes: -ROSU10TA61 PO; +ROSU10TA90 PO
[2025-10-07 17:41] LABS: BASO # 0.1 10^3/uL (0.0-0.2); BASO % 0.5 % (0.0-1.0); EOS # 0.4 10^3/uL (0.0-0.5); EOS % 4.1 % (0.0-3.0); LYMPH # 1.6 10^3/uL (1.5-5.0); LYMPH % 17.4 % (24.0-44.0); MONO # 0.9 10^3/uL (0.0-0.8); MONO % 9.1 % (2.0-8.0); NEUTROPHILS # 6.4 10^3/uL (1.5-8.5); NEUTROPHILS % 68.5 % (36.0-66.0); PLATELET COUNT, AUTOMATED 281 10^3/uL (150-450)
[2025-10-07 18:11] LABS: ALT/SGPT 31 U/L (7.0-40); AST/SGOT 24 U/L (<34); CALCIUM LEVEL 10.5 MG/DL (8.5-10.1); CARBON DIOXIDE LEVEL 32 MMOL/L (20-31); CHLORIDE LEVEL 101 MMOL/L (98-107); CHOLESTEROL LEVEL 169 MG/DL (<200); CHOLESTEROL RISK RATIO 3.11 (<5); CREATININE FOR GFR 0.97 MG/DL (0.70-1.30); GLOMERULAR FILTRATION RATE > 90.0 (>60); LDL CHOLESTEROL 81.7 MG/DL (<100); MAGNESIUM LEVEL 2.0 MG/DL (1.8-2.4); NON-HDL-C 114.7 MG/DL; POTASSIUM SERUM 4.8 MMOL/L (3.5-5.1); SODIUM LEVEL 140 MMOL/L (136-145); TRIGLYCERIDES LEVEL 165 MG/DL (<150)
[2025-10-07 18:52] LABS: ESTIMATED AVERAGE GLUCOSE 194.0 MG/DL (60-110)
== END ==
LOC: M PLALAB 16:30
PROVIDERS: ATTEND Student in an Organized Health Care Education/Training Program
DX: Z00.00 Encounter for general adult medical examination without abnormal findings (principal); E11.65 Type 2 diabetes mellitus with hyperglycemia; I10 Essential (primary) hypertension; E83.42 Hypomagnesemia